=== PATIENT | female | born 1960 | race Caucasian/White ===

== ENCOUNTER → 2018-03-19 17:33 | Outpatient (CLI) | payer BC, SELFPAY | DX: R19.7 Diarrhea, unspecified (principal) | CPT/HCPCS: 87045; 87046 ==

== ENCOUNTER → 2018-04-20 07:20 | Outpatient (CLI) | payer BC, SELFPAY ==
[2018-04-20 09:06] LABS: Add Manual Diff / Slide Review NO; Basophils Percent Auto 0.2 % (0-2); Eosinophils Percent Auto 2.7 % (2-4); Hematocrit 41.4 % (36-46); Hemoglobin 14.2 g/dL (12.0-16.0); Lymphocytes Percent Auto 25.4 % (25-40); Mean Corpuscular HGB Conc 34.4 % (30-36); Mean Corpuscular Hemoglobin 32.6 PG (26-34); Mean Corpuscular Volume 94.9 fL (80-100); Monocytes Percent Auto 5.3 % (3-14); Neutrophils Absolute Auto 4200 /uL (3000-5900); Neutrophils Percent Auto 66.4 % (50-75); Platelet Count 179 X10^3/uL (150-400); Red Blood Cell Count 4.36 X10^6/uL (4.0-5.2); Red Cell Distribution Width 12.4 % (11.6-14.8); White Blood Cell Count 6.4 X10^3/uL (4.5-11.0)
[2018-04-20 09:56] LABS: Alanine Aminotransferase 29 IU/L (9-52); Albumin 4.2 g/dL (3.5-5.0); Albumin Globulin Ratio 1.4 (1.0-2.8); Alkaline Phosphatase 67 U/L (38-126); Aspartate Aminotransferase 15 IU/L (14-36); BUN Creatinine Ratio 16.3 (6-22); Bilirubin Total 0.5 mg/dL (0.2-1.3); Blood Urea Nitrogen 13 mg/dL (7-17); Calcium 9.3 mg/dL (8.4-10.2); Carbon Dioxide 27 mmol/L (22-32); Chloride 103 mmol/L (98-107); Cholesterol 169 mg/dL (140-199); Estimated Glomerular Filt Rate > 60.0 mL/min (>60); Globulin 2.9 g/dL (1.7-4.1); Glucose 99 mg/dL (70-100); HDL Cholesterol 39 mg/dL (40-60); HEMOLYSIS < 15 (0-50); LDL Cholesterol Calculated 95 mg/dL (<100); Potassium 4.2 mmol/L (3.4-5.1); Sodium 143 mmol/L (137-145); Total Protein 7.1 g/dL (6.3-8.2); Triglycerides 173 mg/dL (35-150)
[2018-04-20 10:05] LABS: Free T3, Triiodothyronine Free 3.71 pg/mL (2.77-5.27); Free T4, Direct Thyroxine 0.81 ng/dL (0.78-2.19)
[2018-04-20 10:18] LABS: Thyroid Stimulating Hormone 1.73 uIU/mL (0.47-4.68)
[2018-04-20 11:44] LABS: Vitamin D 25 Hydroxy (D3) 20.4 ng/mL (30.0-100.0)
[2018-04-21 14:16] LABS: Anti Thyroglobulin Antibody < 1 IU/mL (< 2)
== END ==
PROVIDERS: PCP Family Medicine; Visit Provider Family Medicine
DX: Z86.39 Personal history of other endocrine, nutritional and metabolic disease (principal); R53.83 Other fatigue
CPT/HCPCS: 36415; 80053; 80061; 82306; 84439; 84443; 84481; 85025; 86800

== ENCOUNTER → 2018-04-21 07:16 | Outpatient (CLI) | payer BC, SELFPAY ==
--- NOTE | 2018-04-21 07:17 | DI.US.S_ITS ---
PROCEDURE: US THYROID INDICATIONS: History of hypothyroidism TECHNIQUE: Real-time scanning was performed of the thyroid gland, with image documentation. COMPARISON: None. FINDINGS: Right: Thyroid lobe measures 4.1 x 1.2 x 1.7 cm, and is homogeneous in echotexture. Left: Thyroid lobe measures 5.9 x 1.8 x 1.6 cm, and is homogenous in echotexture. Isthmus: 2.7 mm thick. Nodule number: 1 Location: Left mid Size: 2.6 x 1.4 x 1.5 cm. Composition: Solid Echogenicity: Hypoechoic Shape: wider than tall. Margins: Smooth Echogenic foci: None Total points: 4 ACR TI-RADS category: Moderately suspicious Nodule number: 2 Location: Left inferior Size: 1 20 x 1.0 x 1.2 cm. Composition: Solid Echogenicity: Hypoechoic Shape: wider than tall. Margins: Smooth Echogenic foci: Punctate internal echogenic foci Total points: 7 ACR TI-RADS category: Highly suspicious Nodule number: 3 Location: Right inferior Size: 1.4 x 0.9 x 1.2 cm. Composition: Solid Echogenicity: Hypoechoic Shape: wider than tall. Margins: Smooth Echogenic foci: None Total points: 4 ACR TI-RADS category: Moderately suspicious IMPRESSION: Bilateral thyroid nodules as above. Recommend sonographic guided fine needle aspiration involving the left # 1 and # 2 nodules. ACR TI-RADS definitions and recommendations: TI-RADS 1 (benign): 0 points. FNA not needed. TI-RADS 2 (not suspicious): 2 points. FNA not needed. TI-RADS 3 (mildly suspicious): 3 points. * FNA if 2.5 cm or larger, follow up if 1.5 cm or larger (at 1, 3, and 5 years). TI-RADS 4 (moderately suspicious): 4-6 points. * FNA if 1.5 cm or larger, follow up if 1 cm or larger (at 1, 2, 3, and 5 years). TI-RADS 5 (highly suspicious): 7 points or more. * FNA if 1 cm or larger, fo Dictated by: Abad Christina RRA Interpreted: Bk Bhardwaj MD on 04/21/2018 at 9:48 Approved by: Bk Bhardwaj M.D. on 04/21/2018 at 10:59
== END ==
PROVIDERS: PCP Family Medicine; Visit Provider Family Medicine
DX: E04.2 Nontoxic multinodular goiter (principal); E03.9 Hypothyroidism, unspecified
CPT/HCPCS: 76536

== ENCOUNTER → 2018-06-04 07:42 | Outpatient (CLI) | payer BC, SELFPAY ==
[2018-06-04 09:11] LABS: Cortisol AM (Before 10AM) 1.04 ug/dL (4.46-22.7)
== END ==
PROVIDERS: PCP Family Medicine; Visit Provider Internal Medicine Endocrinology, Diabetes & Metabolism
DX: R53.82 Chronic fatigue, unspecified (principal)
CPT/HCPCS: 36415; 82533

== ENCOUNTER → 2018-09-01 11:56 | Outpatient (CLI) | payer BC, SELFPAY ==
--- NOTE | 2018-09-01 | DI.MG.S_ITS ---
BILATERAL DIGITAL SCREENING MAMMOGRAM 3D/2D WITH CAD: 09/01/2018 CLINICAL: Routine screening. Comparison is made to exams dated: 06/30/2017 mammogram and 04/17/2016 mammogram - [facility]. The tissue of both breasts is predominantly fatty. Current study was also evaluated with a Computer Aided Detection (CAD) system. No significant masses, calcifications, or other findings are seen in either breast. There has been no significant interval change. IMPRESSION: NEGATIVE There is no mammographic evidence of malignancy. A 1 year screening mammogram is recommended. NOTE: For mammograms, a report in lay terms will be sent to the patient. Approximately 15% of breast malignancies will not be visualized mammographically. In the management of a palpable breast mass, a negative mammogram must not discourage biopsy of a clinically suspicious lesion. Electronically Signed By: Annie pinto/leeann:09/01/2018 15:51:25 letter sent: Normal Exam ACR BI-RADS Category 1: Negative 3341F
== END ==
PROVIDERS: PCP Family Medicine; Visit Provider Family Medicine
DX: Z12.31 Encounter for screening mammogram for malignant neoplasm of breast (principal)
CPT/HCPCS: 77063; 77067

== ENCOUNTER → 2019-01-27 14:48 | Outpatient (CLI) | payer BC, SELFPAY ==
[2019-01-27 15:53] LABS: Influenza A and B by PCR Rapid Negative (Negative)
== END ==
PROVIDERS: PCP Family Medicine; Visit Provider Nurse Practitioner Family
DX: R50.9 Fever, unspecified (principal)
CPT/HCPCS: 87400

== ENCOUNTER → 2019-09-02 07:14 | Outpatient (CLI) | payer BC, SELFPAY ==
--- NOTE | 2019-09-02 | DI.MG.S_ITS ---
BILATERAL DIGITAL SCREENING MAMMOGRAM 3D/2D WITH CAD: 09/02/2019 CLINICAL: Routine screening. Comparison is made to exams dated: 09/01/2018 mammogram - [facility], 06/30/2017 mammogram, and 04/17/2016 mammogram - [facility]. The tissue of both breasts is predominantly fatty. Current study was also evaluated with a Computer Aided Detection (CAD) system. No significant masses, calcifications, or other findings are seen in either breast. There has been no significant interval change. IMPRESSION: NEGATIVE There is no mammographic evidence of malignancy. A 1 year screening mammogram is recommended. This exam was interpreted at Station ID: [id number]. NOTE: For mammograms, a report in lay terms will be sent to the patient. Approximately 15% of breast malignancies will not be visualized mammographically. In the management of a palpable breast mass, a negative mammogram must not discourage biopsy of a clinically suspicious lesion. Electronically Signed By: Samra shaw/leeann:09/02/2019 12:59:57 letter sent: Normal Exam ACR BI-RADS Category 1: Negative 3341F
[2019-09-02 08:02] LABS: Appearance Urine UA CLEAR; Bilirubin Urine UA NEGATIVE (NEGATIVE); Color Urine UA YELLOW; Glucose Urine UA NEGATIVE (Negative); Ketones Urine UA NEGATIVE (NEGATIVE); Leukocyte Esterase Urine UA TRACE (NEGATIVE); Nitrite Urine UA NEGATIVE (Negative); Occult Blood Urine UA TRACE-LYSED (Negative); Protein Urine UA NEGATIVE (Negative); Specific Gravity Urine UA 1.015 (1.000-1.035); Urobilinogen Urine UA 0.2 E.U./dL (0.2)
[2019-09-02 08:16] LABS: Bacteria Urine Moderate (10-30); Culture Indicated Urine Cult Not Indicated; RBC Urine 0-1/HPF (0-5/HPF); Squamous Epithelial Cell Urine 5-10 /HPF (0-5/HPF); WBC Urine 1-5/HPF (0-5/HPF)
[2019-09-02 08:18] LABS: Hematocrit 40.2 % (36-46); Hemoglobin 13.8 g/dL (12.0-16.0); Mean Corpuscular HGB Conc 34.4 % (30-36); Mean Corpuscular Hemoglobin 32.7 PG (26-34); Mean Corpuscular Volume 95.2 fL (80-100); Platelet Count 181 X10^3/uL (150-400); Red Blood Cell Count 4.23 X10^6/uL (4.0-5.2); Red Cell Distribution Width 12.6 % (11.6-14.8); White Blood Cell Count 7.1 X10^3/uL (4.5-11.0)
[2019-09-02 08:28] LABS: Alanine Aminotransferase 14 IU/L (<35); Albumin 3.9 g/dL (3.5-5.0); Albumin Globulin Ratio 1.5 (1.0-2.8); Alkaline Phosphatase 74 U/L (38-126); Aspartate Aminotransferase 16 IU/L (14-36); BUN Creatinine Ratio 17.5 (6-22); Bilirubin Total 0.4 mg/dL (0.2-1.3); Blood Urea Nitrogen 14 mg/dL (7-17); Calcium 9.2 mg/dL (8.4-10.2); Carbon Dioxide 28 mmol/L (22-32); Chloride 104 mmol/L (98-107); Cholesterol 162 mg/dL (140-199); Estimated Glomerular Filt Rate > 60.0 mL/min (>60); Globulin 2.6 g/dL (1.7-4.1); Glucose 109 mg/dL (80-110); HDL Cholesterol 36 mg/dL (40-60); HEMOLYSIS < 15 (0-50); LDL Cholesterol Calculated 99 mg/dL (<100); Potassium 4.4 mmol/L (3.4-5.1); Sodium 138 mmol/L (137-145); Total Protein 6.5 g/dL (6.3-8.2); Triglycerides 137 mg/dL (35-150)
[2019-09-02 08:57] LABS: Neutrophils Absolute Manual 5183 /uL (3000-5900); Thyroid Stimulating Hormone 1.78 uIU/mL (0.47-4.68); Total Cells Counted 100
[2019-09-02 08:58] LABS: Microcytosis 1+; Polychromasia 1+
[2019-09-02 15:22] LABS: Vitamin D 25 Hydroxy (D3) 47.3 ng/mL (30.0-100.0)
== END ==
PROVIDERS: PCP Family Medicine; Visit Provider Family Medicine
DX: Z00.00 Encounter for general adult medical examination without abnormal findings (principal); Z12.31 Encounter for screening mammogram for malignant neoplasm of breast; R53.83 Other fatigue; Z51.81 Encounter for therapeutic drug level monitoring; Z86.39 Personal history of other endocrine, nutritional and metabolic disease
CPT/HCPCS: 36415; 77063; 77067; 80053; 80061; 81003; 81015; 82306; 84443; 85025

== ENCOUNTER → 2021-01-25 15:52 | Outpatient (CLI) | payer OTHER, SELFPAY ==
[2021-01-25] MEDS: COVID-19 VACC #1, MRNA(MOD) 100 MCG/0.5 ML VIAL IM (16:00)
== END ==
PROVIDERS: PCP Family Medicine; Visit Provider Internal Medicine
DX: Z23 Encounter for immunization (principal)
CPT/HCPCS: 0011A; 91301

== ENCOUNTER → 2021-02-22 15:53 | Outpatient (CLI) | payer OTHER, SELFPAY ==
[2021-02-22] MEDS: COVID-19 VACC #2, MRNA(MOD) 100 MCG/0.5 ML VIAL IM (16:03)
== END ==
PROVIDERS: PCP Family Medicine; Visit Provider Internal Medicine
DX: Z23 Encounter for immunization (principal)
CPT/HCPCS: 0012A; 91301

== ENCOUNTER 2022-12-05 11:50 | Inpatient (IN) | payer OTHER, SELFPAY ==
[2022-12-05] VITALS (68 sets, daily range): BP systolic 117–228; BP diastolic 57–136; PULSE 69–100; RESP 13–29; TEMP 37.1–37.7; O2SAT 88–100; BMI 41.2
--- NOTE | 2022-12-05 12:07 | DI.CT.S_ITS ---
PROCEDURE: CT STROKE INDICATIONS: Positive BE-FAST, Stroke symptoms TECHNIQUE: Noncontrast 4.5 mm thick angled axial sections acquired from the foramen magnum to the vertex, with coronal reformats. For radiation dose reduction, the following was used: automated exposure control, adjustment of mA and/or kV according to patient size. COMPARISON: None. FINDINGS: Image quality: Excellent. CSF spaces: Basal cisterns are patent. No extra-axial fluid collections. The ventricles are symmetric in size and shape. Brain: No intracranial bleeds or masses. There is cerebral volume loss for age, with resultant ventricular and sulcal prominence. There are periventricular and deep white matter chronic small vessel ischemic changes. There is intracranial internal carotid artery atherosclerosis. Skull and face: Calvarium and visualized facial bones appear intact, without suspicious lesions. Sinuses: Visualized sinuses and mastoids are clear. IMPRESSION: 1. No acute intracranial abnormalities. 2. Cerebral volume loss and chronic microvascular ischemic changes. The result was discussed with Dr. Soto. This study fulfills neurological imaging criteria for inclusion or exclusion of acute stroke therapies based on available published neurological guidelines. Dictated by: Reji Pan M.D. on 12/05/2022 at 12:25 Approved by: Reji Pan M.D. on 12/05/2022 at 12:27
--- NOTE | 2022-12-05 12:07 | DI.RAD.S_ITS ---
PROCEDURE: XR CHEST 1V INDICATIONS: Possible stroke TECHNIQUE: One view of the chest was acquired. COMPARISON: None. FINDINGS: Surgical changes and devices: None. Lungs and pleura: Lungs are clear. No pleural effusions or pneumothorax. Mediastinum: Mediastinal contours appear normal. Heart size is normal. Bones and chest wall: No suspicious bony lesions. Overlying soft tissues appear unremarkable. IMPRESSION: No acute cardiopulmonary abnormality. Dictated by: Yuriy Arana M.D. on 12/05/2022 at 12:32 Approved by: Yuriy Arana M.D. on 12/05/2022 at 12:32
[2022-12-05 12:30] LABS: UR Morphine/Opiate cutoff 300 Negative (Negative); Ur Creatinine Normal (Normal); Ur Specific Gravity Normal (Normal); Urine Amphetamines Negative (Negative); Urine Cocaine Negative (Negative); Urine Tetrahydrocannabinol Positive (Negative); Urine pH Normal (Normal)
[2022-12-05 12:31] LABS: Urine Barbiturates Negative (Negative); Urine Benzodiazepines Negative (Negative); Urine MDMA Negative (Negative); Urine Methadone Negative (Negative); Urine Methamphetamines Negative (Negative); Urine Oxycodone Negative (Negative); Urine Phencyclidine Negative (Negative); Urine Tricyclic Antidepressant Negative (Negative)
[2022-12-05 13:29] LABS: Add Manual Diff / Slide Review NO; Basophils Absolute Auto 100 /uL (0-100); Basophils Percent Auto 0.5 % (0-2); Eosinophils Absolute Auto 0 /uL (0-450); Eosinophils Percent Auto 0.1 % (2-4); Hematocrit 42.4 % (36-46); Hemoglobin 14.5 g/dL (12.0-16.0); Lymphocytes Absolute Auto 700 /uL (1100-4500); Lymphocytes Percent Auto 5.9 % (25-40); Mean Corpuscular HGB Conc 34.3 % (30-36); Mean Corpuscular Volume 96.4 fL (80-100); Monocytes Absolute Auto 400 /uL (0-900); Monocytes Percent Auto 3.5 % (3-14); Neutrophils Absolute Auto 11500 /uL (1500-7000); Platelet Count 183 X10^3/uL (150-400); Red Blood Cell Count 4.39 X10^6/uL (4.0-5.2); Red Cell Distribution Width 12.6 % (11.6-14.8); White Blood Cell Count 12.7 X10^3/uL (4.5-11.0)
[2022-12-05] MEDS: ONDANSETRON 4 MG ODT SL (13:33)
[2022-12-05 13:39] LABS: Alanine Aminotransferase 25 IU/L (<35); Albumin 4.6 g/dL (3.5-5.0); Albumin Globulin Ratio 1.3 (1.0-2.8); Alkaline Phosphatase 75 U/L (38-126); Aspartate Aminotransferase 30 IU/L (14-36); BUN Creatinine Ratio 12.2 (6-22); Bilirubin Total 0.8 mg/dL (0.2-1.3); Blood Urea Nitrogen 10 mg/dL (7-17); Calcium 9.4 mg/dL (8.4-10.2); Carbon Dioxide 25 mmol/L (22-32); Chloride 99 mmol/L (98-107); Creatine Kinase 57 U/L (30-135); Estimated Glomerular Filt Rate > 60 mL/min (>60); Globulin 3.5 g/dL (1.7-4.1); Glucose 118 mg/dL (80-110); Magnesium 1.9 mg/dL (1.6-2.3); Potassium 3.9 mmol/L (3.4-5.1); Sodium 138 mmol/L (137-145); Total Protein 8.1 g/dL (6.3-8.2)
[2022-12-05 13:40] LABS: HEMOLYSIS 64 (0-50)
[2022-12-05 13:45] LABS: Prothrombin Time 11.9 SECONDS (10.1-12.7)
[2022-12-05 13:48] LABS: PTT Partial Thromboplastin Tim 18 SECONDS (26-36)
[2022-12-05 13:51] LABS: Troponin I < 0.012 ng/mL (0.01-0.034)
[2022-12-05 14:18] LABS: Influenza A - CEPHEID Flu A NEGATIVE (NEGATIVE); Influenza B - CEPHEID Flu B NEGATIVE (NEGATIVE); Respiratory Syncytial Virus Negative (Negative)
[2022-12-05 14:20] LABS: COVID-19 CEPHEID 4-PLEX PCR Negative (Negative)
--- NOTE | 2022-12-05 14:31 | DI.CT.S_ITS ---
PROCEDURE: CT ANGIO HEAD AND NECK INDICATIONS: gill, htn, memory problems TECHNIQUE: Pre-contrast 4.5 mm thick sections acquired from the foramen magnum to the vertex. After the administration of intravenous contrast, 1 mm thick sections acquired from the aortic arch through the [place]. Post-contrast 4.5 mm thick sections then re-acquired from the foramen magnum to the vertex. 3-dimensional wjiqvhl-iyzfhufmw-idjvmzlmqe (MIP) and/or volume rendering reformats were acquired of the central intracranial vasculature and neck separately. For radiation dose reduction, the following was used: automated exposure control, adjustment of mA and/or kV according to patient size. COMPARISON: [facility], , FINE NEEDLE ASPIRATION THYROID, 06/15/2018, 11:23. FINDINGS: Image quality: Excellent. BRAIN: CSF spaces: Ventricles are normal in size and shape. Basal cisterns are patent. No extra-axial fluid collections. Brain: No midline shift. No intracranial bleeds or masses. Mcdonald-white matter interface appears intact. Skull and face: Calvarium and facial bones appear intact, without suspicious lesions. Orbits appear normal. Sinuses: Sinuses and mastoids are clear. HEAD CT ANGIOGRAPHY: Anterior circulation: Intracranial internal carotid arteries are normal in size and flow. The flow within the paired anterior cerebral arteries is normal and symmetric. The flow within the middle cerebral arteries is normal and symmetric. The anterior communicating artery is seen. No aneurysms are seen. Posterior circulation: Visualized portions of the vertebral arteries demonstrate normal caliber, and join to form a normal appearing basilar artery. Flow within the posterior cerebral arteries is normal and symmetric. No aneurysms are seen. NECK CT ANGIOGRAPHY: Carotid system: The great vessels demonstrate a conventional anatomy as they arise from the aortic arch. The origins of the common carotid arteries appear patent. The common carotid arteries demonstrate normal caliber and courses. The bifurcation regions are both widely patent. The internal carotid arteries demonstrate normal calibers and courses. Posterior circulation: The origins of the vertebral arteries both appear widely patent. The more superior extracranial portions of both vertebral arteries also demonstrate normal courses and calibers. They join to form a normal appearing basilar artery. Soft tissues: Visualized neck soft tissues demonstrate no suspicious abnormalities except at the thyroid gland where bilateral thyroid nodules appear present. There is a sub cm hypodense nodule within the middle 3rd right thyroid lobe and a significantly larger nodule enlarging the lower 3rd of the left thyroid lobe, possibly measuring up to 2 cm in diameter.. Bones: No suspicious bony lesions. Visualized cervical spine appears normally aligned. IMPRESSION: 1. Two separate thyroid nodules are present, large on the left and small on the right. Dedicated elective follow-up thyroid ultrasound may be warranted. It is noted that prior thyroid ultrasound scanning has been performed in 2018 including biopsy procedures. Accurate comparison between the current CT scanning and the prior ultrasound scanning is not possible. 2. Source of current symptoms is not found. No mass, stroke or intracranial hemorrhage is found. No significant cervical or intracranial arterial stenosis is identified. Any quantitative measurements of stenosis were performed using NASCET criteria. Dictated by: Abdirahman Zamora M.D. on 12/05/2022 at 15:22 Approved by: Abdirahman Zamora M.D. on 12/05/2022 at 15:27
--- NOTE | 2022-12-05 14:34 | ED_ITS ---
HPI - Neuro Symptoms/Deficit General Chief Complaint: Neuro Symptoms/Deficit Stated Complaint: throwing up as of last night, memory is lost Time Seen by Provider: 12/05/22 14:31 Source: patient Mode of arrival: Ambulatory Limitations: no limitations History of Present Illness HPI Narrative: This is a 62-year-old female with history of allergies, patient states she is not sure why she is here but she can tell me that she had some nausea vomiting and diarrhea last night. Her who is at bedside states last night she is complaining of some upper back discomfort so having nausea and vomiting after dinner as well as diarrhea multiple episodes throughout the night was up most of the night but stopped vomiting this morning but still nauseated feeling unwell. He states no fevers, no complaints of headaches, no complaints of vision change, no speech, no facial droop no weakness normal gait but noted this morning she took a nap for about an hour and a half and when she woke up was confused particularly in terms of short-term memory although there are some things from a couple weeks ago that she forgets but her long-term memory seems intact. Patient's states she has not had any episodes like this before. Patient herself denies headache, no fevers or chills. No chest pain or shortness of breath, no numbness, tingling or weakness. No abdominal, no back or flank pain. She still has some nausea she does note she was sick last night she notes that she would diarrhea and had to change her underwear. No reported black or bloody stools for patient or from her . No dysuria urgency or frequency. Both her and her state nothing similar in the past. She can tell me she does take medications for allergies [id number] and vitamins. She told me she is had a tonsillectomy, no known drug allergies. No tobacco 1 alcoholic drink most days, she uses THC but no other illicit drugs. No active PCP. She notes her mom had a brain tumor in the 1980s that was removed did not cause any additional issues. There is reported history of celiac disease in her family but she is never been tested. Her corroborates this history. Patient is able to give a pretty good history but when I ask her specific questions about last night or this morning she does struggle. On Anticoagulants: No Related Data Home Medications Medication Instructions Recorded Confirmed cetirizine 10 mg capsule (Zyrtec) 10 mg PO DAILY 03/19/18 10/11/19 triamcinolone acetonide 55 mcg 1 spray intranasal DAILY 03/19/18 10/11/19 nasal spray aerosol (Nasacort) Previous Rx's Medication Instructions Recorded acetaminophen 325 mg capsule 650 mg PO ONCE #2 caps 01/27/19 adjuvant AS01B (PF)vial 1 of 2 0.5 ml IM ONCE #0.5 mL 05/13/19 (Shingrix Adjuvant Component (PF) intramuscular suspension) cyclobenzaprine 10 mg tablet 10 mg PO ONCE PRN muscle spasm #30 08/16/19 tabs Allergies Allergy/AdvReac Type Severity Reaction Status Date / Time house dust Allergy Mild Verified 12/05/22 14:01 perfume Allergy Mild Verified 12/05/22 14:01 tree and shrub pollen Allergy Mild Post nasal Verified 12/05/22 14:01 drip Review of Systems Review of Systems ROS Unobtainable: All systems reviewed & are unremarkable except as noted in HPI and below Hematologic/Lymphatic On Anticoagulants: No Patient History Medical History Chickenpox (1961) Chronic back pain (1986) Herpes (1985) Hypothyroidism (1971) Measles (1960) Mumps (1962) Pneumonia (2016) Surgical History Hx of dilation and curettage (1981) Hx of tonsillectomy (~1962) Family History Father Atrial fibrillation, chronic Macular degeneration Hypertension Hyperlipidemia Mother Cancer Brain tumor Grandfather No problems noted. Grandmother Cancer Grandfather No problems noted. Grandmother No problems noted. Brother Cancer Social History household members: spouse Smoking Status: Former smoker Tobacco: How many years used: 10 alcohol intake: current substance use type: does not use Smoking Status: Former smoker alcohol intake frequency: 0-2 drinks per day Substance Use Type: marijuana Exam Narrative Exam Narrative: GEN: well nourished, well appearing female, alert and oriented x 3, but has difficulty with short-term questions, patient appears to be in mild distress. HEENT: Atraumatic, pupils are equal round reactive to light, extraocular movements are intact, nares are clear, TMs are clear with no fluid, there is no conjunctival pallor. Throat is clear without any exudates, erythema, tonsillar enlargement or uvular deviation, no facial droop. HEART: Regular rate and rhythm without murmur, clicks, rubs. No carotid bruits, pulses are equal in upper and lower extremities LUNGS:Lungs clear to auscultation, no wheezes, rales, crackles, chest moves symmetrically ABD:bowel sounds normal, soft, non-tender, no guarding, rebound, rigidity, no masses noted, no hepatosplenomegaly :No CVA tenderness MSCL: Non-tender, no muscle atrophy, muscles strength 5/5 upper and lower extremities, full range of motion, normal gait NEURO:CN 2-12 intact, sensation normal, finger nose finger test normal, heel henley test normal, romberg normal SKIN: No rash, erythema or other skin changes. Initial Vital Signs Initial Vital Signs: Vital Signs Temperature 98.8 F 12/05/22 11:55 Pulse Rate 100 H 12/05/22 11:55 Respiratory Rate 16 12/05/22 11:55 Blood Pressure 159/81 H 12/05/22 11:55 Pulse Oximetry 97 12/05/22 11:55 Oxygen Delivery Method 12/05/22 11:55 Scores NIH Stroke Scale Level of Conciousness: Alert, keenly responsive Ask month/age: Answers both questions correctly. Open/close eyes, close hand: Performs both tasks correctly Best gaze horizontal: Normal Visual hernandez: No visual loss Facial palsy: Normal symetrical movement Left arm drift: No drift for full 10 sec Right arm drift: No drift for full 10 sec Left leg drift: No drift for full 5 sec Right leg drift: No drift for full 5 sec Limb ataxia: Absent Sensory on face/arms/legs: Normal, no sensory loss Best language: No aphasia, normal Dysarthria: Normal Extinction or inattention: No abnormality Total NIH Stroke scale score: 0 Course Orders Ordered: ED Orders 12/05/22 12:05 Urine Drug Screen, Rapid Stat 12/05/22 12:07 CT Stroke Stat XR chest 1V Stat 12/05/22 13:11 Complete Blood Count AUTO DIFF Stat Comprehensive Metabolic Panel Stat Magnesium Stat Partial Thromboplastin Time Stat Prothrombin Time INR Stat TSH [Thyroid Stimulating Hormone] Stat Troponin & CK Cardiac Panel Stat 12/05/22 13:25 ETOH [Ethanol (ETOH)] Stat 12/05/22 13:33 Covid-19 + FLU A/B + RSV - PCR Stat 12/05/22 13:39 EKG-12 Lead Stat 12/05/22 14:31 CT angio head and neck Stat 12/05/22 15:33 Urinalysis and Microscopic Stat Urine Culture Stat 12/05/22 15:34 Urine Drug Screen, Rapid Stat 12/05/22 16:25 MR head/brain wo con Stat 12/05/22 18:06 Consult to Tele-contract graphic designer Routine Acetaminophen (Acetaminophen 325 Mg Tablet) 650 mg PO Q6H PRN PRN Reason: Fever/Mild Pain (1-3) Aspirin (Aspirin Ec 81 Mg Tablet) 81 mg PO DAILY MC Atorvastatin Calcium (Atorvastatin 20 Mg Tablet) 40 mg PO BEDTIME MC Enoxaparin Sodium (Enoxaparin 40 Mg/0.4 Ml Syringe) 40 mg SUBCUT DAILY MC Nicardipine HCl 25 mg/ Sodium (Chloride) 250 mls @ 50 mls/hr IV TITRATE MC; Protocol Last Titration: 12/05/22 18:05 Dose: 0 mg/hr, 0 mls/hr Documented By: Admin: 12/05/22 17:22 Dose: 5 mg/hr, 50 mls/hr Documented By: TOY Ondansetron HCl (Ondansetron 4 Mg/2 Ml Inj) 4 mg IV Q4HR PRN PRN Reason: Nausea And Vomiting Discontinued Medications Influenza Virus Vaccine (Influenza Vaccine Qiv 0.5 Ml Syringe) 0.5 ml IM .ONCE ONE Stop: 12/05/22 18:22 Metoprolol Tartrate (Metoprolol Tartrate 5 Mg/5 Ml Inj) 5 mg IV NOW ONE Stop: 12/05/22 15:29 Last Admin: 12/05/22 15:35 Dose: 5 mg Documented By: RL Metoprolol Tartrate (Metoprolol Tartrate 5 Mg/5 Ml Inj) 5 mg IV NOW ONE Stop: 12/05/22 16:23 Last Admin: 12/05/22 16:51 Dose: Not Given Documented By: MARTHA Ondansetron HCl (Ondansetron 4 Mg/2 Ml Inj) 4 mg IV NOW PRN PRN Reason: Nausea And Vomiting Last Admin: 12/05/22 14:55 Dose: 4 mg Documented By: RL Ondansetron HCl (Ondansetron 4 Mg Odt) 4 mg SL NOW ONE Stop: 12/05/22 13:31 Last Admin: 12/05/22 13:33 Dose: 4 mg Documented By: NR Consultations Consultation #1: Dr. Arenas, neurology: Recommends hypertensive control with 25% reduction no more initially, using short-acting blood pressure control admit observation if not improving or clearing MR. She does not wrap command any antiplatelet therapy currently as her suspicion for embolic event is low. Vital Signs Vital signs: Vital Signs - 8 hr 12/05/22 11:55 12/05/22 13:14 12/05/22 13:14 Temperature 98.8 F Pulse Rate 100 H 91 H Respiratory Rate 16 Blood Pressure 159/81 H 218/100 H Pulse Oximetry 97 98 Oxygen Delivery Method Room Air 12/05/22 13:15 12/05/22 13:26 12/05/22 13:26 Temperature Pulse Rate 90 90 Respiratory Rate 14 18 Blood Pressure 224/98 H Pulse Oximetry 99 98 Oxygen Delivery Method Room Air 12/05/22 13:30 12/05/22 13:31 12/05/22 13:31 Temperature Pulse Rate 91 H 91 H Respiratory Rate 19 20 Blood Pressure 217/106 H Pulse Oximetry 99 99 Oxygen Delivery Method 12/05/22 13:45 12/05/22 13:46 12/05/22 13:46 Temperature Pulse Rate 87 88 Respiratory Rate 16 20 Blood Pressure 204/118 H Pulse Oximetry 99 99 Oxygen Delivery Method 12/05/22 14:00 12/05/22 14:00 12/05/22 14:15 Temperature Pulse Rate 84 Respiratory Rate 20 Blood Pressure 206/97 H 201/96 H Pulse Oximetry 94 Oxygen Delivery Method Room Air 12/05/22 14:15 12/05/22 14:30 12/05/22 14:31 Temperature Pulse Rate 83 97 H 98 H Respiratory Rate 21 15 14 Blood Pressure Pulse Oximetry 93 98 98 Oxygen Delivery Method 12/05/22 14:31 12/05/22 14:45 12/05/22 14:45 Temperature Pulse Rate 98 H Respiratory Rate 16 Blood Pressure 223/106 H 209/106 H Pulse Oximetry 98 Oxygen Delivery Method 12/05/22 15:10 12/05/22 15:11 12/05/22 15:11 Temperature Pulse Rate 95 H 94 H Respiratory Rate 29 H 20 Blood Pressure 193/91 H Pulse Oximetry 98 98 Oxygen Delivery Method 12/05/22 15:15 12/05/22 15:15 12/05/22 15:30 Temperature Pulse Rate 92 H Respiratory Rate 16 Blood Pressure 209/110 H 207/113 H Pulse Oximetry 98 Oxygen Delivery Method 12/05/22 15:30 12/05/22 15:40 12/05/22 15:40 Temperature Pulse Rate 84 85 Respiratory Rate 22 17 Blood Pressure 199/136 H Pulse Oximetry 93 95 Oxygen Delivery Method 12/05/22 15:45 12/05/22 15:45 12/05/22 15:50 Temperature Pulse Rate 69 Respiratory Rate 13 Blood Pressure 195/132 H 205/115 H Pulse Oximetry 93 Oxygen Delivery Method 12/05/22 15:50 12/05/22 15:55 12/05/22 15:55 Temperature Pulse Rate 72 72 Respiratory Rate 16 15 Blood Pressure 205/113 H Pulse Oximetry 93 93 Oxygen Delivery Method 12/05/22 16:00 12/05/22 16:01 12/05/22 16:01 Temperature Pulse Rate 73 71 Respiratory Rate 16 16 Blood Pressure 220/118 H Pulse Oximetry 92 92 Oxygen Delivery Method 12/05/22 16:05 12/05/22 16:05 12/05/22 16:10 Temperature Pulse Rate 73 76 Respiratory Rate 14 18 Blood Pressure 228/115 H Pulse Oximetry 93 93 Oxygen Delivery Method 12/05/22 16:10 12/05/22 16:15 12/05/22 16:15 Temperature Pulse Rate 73 Respiratory Rate 18 Blood Pressure 211/111 H 213/106 H Pulse Oximetry 93 Oxygen Delivery Method 12/05/22 16:20 12/05/22 16:20 12/05/22 16:25 Temperature Pulse Rate 75 78 Respiratory Rate 16 22 Blood Pressure 202/96 H Pulse Oximetry 94 95 Oxygen Delivery Method 12/05/22 16:25 12/05/22 16:30 12/05/22 16:30 Temperature Pulse Rate 74 Respiratory Rate 25 H Blood Pressure 213/100 H 218/103 H Pulse Oximetry 94 Oxygen Delivery Method 12/05/22 16:35 12/05/22 16:35 12/05/22 16:40 Temperature Pulse Rate 74 74 Respiratory Rate 23 15 Blood Pressure 222/126 H Pulse Oximetry 92 93 Oxygen Delivery Method 12/05/22 16:40 12/05/22 16:45 12/05/22 16:45 Temperature Pulse Rate 72 Respiratory Rate 14 Blood Pressure 215/102 H 206/100 H Pulse Oximetry 94 Oxygen Delivery Method 12/05/22 17:00 12/05/22 17:00 Temperature Pulse Rate 74 Respiratory Rate 17 Blood Pressure 203/103 H Pulse Oximetry 93 Oxygen Delivery Method MDM - Neuro Symptoms/Deficit Lab Data 12/05/22 13:11 12/05/22 13:11 Labs: Lab Results 12/05/22 12/05/22 12/05/22 Range/Units 12:05 13:11 13:11 WBC 12.7 H (4.5-11.0) X10^3/uL RBC 4.39 (4.0-5.2) X10^6/uL Hgb 14.5 (12.0-16.0) g/dL Hct 42.4 (36-46) % MCV 96.4 (80-100) fL MCH 33.0 (26-34) PG MCHC 34.3 (30-36) % RDW 12.6 (11.6-14.8) % Plt Count 183 (150-400) X10^3/uL Neut % (Auto) 90.0 H (50-75) % Lymph % (Auto) 5.9 L (25-40) % [place] % (Auto) 3.5 (3-14) % Eos % (Auto) 0.1 L (2-4) % Baso % (Auto) 0.5 (0-2) % Neut # (Auto) 76724 H (5251-3277) /uL Lymph # (Auto) 700 L (9837-7741) /uL [place] # (Auto) 400 (0-900) /uL Eos # (Auto) 0 (0-450) /uL Baso # (Auto) 100 (0-100) /uL PT 11.9 (10.1-12.7) SECONDS INR 1.0 (0.9-1.3) APTT 18 L (26-36) SECONDS Sodium (137-145) mmol/L Potassium (3.4-5.1) mmol/L Chloride (98-107) mmol/L Carbon Dioxide (22-32) mmol/L BUN (7-17) mg/dL Creatinine (0.52-1.04) mg/dL Estimated GFR (>60) mL/min BUN/Creatinine Ratio (6-22) Glucose (80-110) mg/dL Calcium (8.4-10.2) mg/dL Magnesium (1.6-2.3) mg/dL Total Bilirubin (0.2-1.3) mg/dL AST (14-36) IU/L ALT (<35) IU/L Alkaline Phosphatase (38-126) U/L Total Creatine Kinase (30-135) U/L CK-MB (CK-2) CK-MB (CK-2) Rel Index Troponin I (0.01-0.034) ng/mL Total Protein (6.3-8.2) g/dL Albumin (3.5-5.0) g/dL Globulin (1.7-4.1) g/dL Albumin/Globulin Ratio (1.0-2.8) TSH (0.47-4.68) uIU/mL Urine Color Urine Appearance Urine pH (4.5-8.0) Ur Specific Nitro (1.000-1.035) Urine Protein (Negative) Urine Glucose (UA) (Negative) g/dL Urine Ketones (NEGATIVE) Urine Occult Blood (Negative) Urine Nitrate (Negative) Urine Bilirubin (NEGATIVE) Urine Urobilinogen (0.2) E.U./dL Ur Leukocyte Esterase (NEGATIVE) Urine RBC (0-5/HPF) Urine WBC (0-5/HPF) Ur Squamous Epith Cells (0-5/HPF) Ur Renal Epithelial Cell (0-1/HPF) Amorphous Sediment Urine Bacteria (None) Ur Culture Indicated? U Opiates 300ng/mL cut Negative (Negative) Ur Oxycodone Screen Negative (Negative) Urine Methadone Screen Negative (Negative) Ur Barbiturates Screen Negative (Negative) U Tricyclic Antidepress Negative (Negative) Ur Phencyclidine Scrn Negative (Negative) Ur Amphetamines Screen Negative (Negative) U Methamphetamines Scrn Negative (Negative) Ur MDMA Scrn (Ecstasy) Negative (Negative) U Benzodiazepines Scrn Negative (Negative) Urine Cocaine Screen Negative (Negative) U Marijuana (THC) Screen Positive H (Negative) Ethyl Alcohol ( - 10) mg/dL SARS-CoV-2 (PCR) (Negative) Influenza A (RT-PCR) (NEGATIVE) Influenza B (RT-PCR) (NEGATIVE) RSV (PCR) (Negative) 12/05/22 12/05/22 12/05/22 Range/Units 13:11 13:11 13:25 WBC (4.5-11.0) X10^3/uL RBC (4.0-5.2) X10^6/uL Hgb (12.0-16.0) g/dL Hct (36-46) % MCV (80-100) fL MCH (26-34) PG MCHC (30-36) % RDW (11.6-14.8) % Plt Count (150-400) X10^3/uL Neut % (Auto) (50-75) % Lymph % (Auto) (25-40) % [place] % (Auto) (3-14) % Eos % (Auto) (2-4) % Baso % (Auto) (0-2) % Neut # (Auto) (4937-2786) /uL Lymph # (Auto) (5569-5543) /uL [place] # (Auto) (0-900) /uL Eos # (Auto) (0-450) /uL Baso # (Auto) (0-100) /uL PT (10.1-12.7) SECONDS INR (0.9-1.3) APTT (26-36) SECONDS Sodium 138 (137-145) mmol/L Potassium 3.9 (3.4-5.1) mmol/L Chloride 99 (98-107) mmol/L Carbon Dioxide 25 (22-32) mmol/L BUN 10 (7-17) mg/dL Creatinine 0.82 (0.52-1.04) mg/dL Estimated GFR > 60 (>60) mL/min BUN/Creatinine Ratio 12.2 (6-22) Glucose 118 H (80-110) mg/dL Calcium 9.4 (8.4-10.2) mg/dL Magnesium 1.9 (1.6-2.3) mg/dL Total Bilirubin 0.8 (0.2-1.3) mg/dL AST 30 (14-36) IU/L ALT 25 (<35) IU/L Alkaline Phosphatase 75 (38-126) U/L Total Creatine Kinase 57 (30-135) U/L CK-MB (CK-2) TNP CK-MB (CK-2) Rel Index TNP Troponin I < 0.012 (0.01-0.034) ng/mL Total Protein 8.1 (6.3-8.2) g/dL Albumin 4.6 (3.5-5.0) g/dL Globulin 3.5 (1.7-4.1) g/dL Albumin/Globulin Ratio 1.3 (1.0-2.8) TSH 1.12 (0.47-4.68) uIU/mL Urine Color Urine Appearance Urine pH (4.5-8.0) Ur Specific Nitro (1.000-1.035) Urine Protein (Negative) Urine Glucose (UA) (Negative) g/dL Urine Ketones (NEGATIVE) Urine Occult Blood (Negative) Urine Nitrate (Negative) Urine Bilirubin (NEGATIVE) Urine Urobilinogen (0.2) E.U./dL Ur Leukocyte Esterase (NEGATIVE) Urine RBC (0-5/HPF) Urine WBC (0-5/HPF) Ur Squamous Epith Cells (0-5/HPF) Ur Renal Epithelial Cell (0-1/HPF) Amorphous Sediment Urine Bacteria (None) Ur Culture Indicated? U Opiates 300ng/mL cut (Negative) Ur Oxycodone Screen (Negative) Urine Methadone Screen (Negative) Ur Barbiturates Screen (Negative) U Tricyclic Antidepress (Negative) Ur Phencyclidine Scrn (Negative) Ur Amphetamines Screen (Negative) U Methamphetamines Scrn (Negative) Ur MDMA Scrn (Ecstasy) (Negative) U Benzodiazepines Scrn (Negative) Urine Cocaine Screen (Negative) U Marijuana (THC) Screen (Negative) Ethyl Alcohol < 10 ( - 10) mg/dL SARS-CoV-2 (PCR) (Negative) Influenza A (RT-PCR) (NEGATIVE) Influenza B (RT-PCR) (NEGATIVE) RSV (PCR) (Negative) 12/05/22 12/05/22 12/05/22 Range/Units 13:33 15:33 15:34 WBC (4.5-11.0) X10^3/uL RBC (4.0-5.2) X10^6/uL Hgb (12.0-16.0) g/dL Hct (36-46) % MCV (80-100) fL MCH (26-34) PG MCHC (30-36) % RDW (11.6-14.8) % Plt Count (150-400) X10^3/uL Neut % (Auto) (50-75) % Lymph % (Auto) (25-40) % [place] % (Auto) (3-14) % Eos % (Auto) (2-4) % Baso % (Auto) (0-2) % Neut # (Auto) (4654-8566) /uL Lymph # (Auto) (2449-1780) /uL [place] # (Auto) (0-900) /uL Eos # (Auto) (0-450) /uL Baso # (Auto) (0-100) /uL PT (10.1-12.7) SECONDS INR (0.9-1.3) APTT (26-36) SECONDS Sodium (137-145) mmol/L Potassium (3.4-5.1) mmol/L Chloride (98-107) mmol/L Carbon Dioxide (22-32) mmol/L BUN (7-17) mg/dL Creatinine (0.52-1.04) mg/dL Estimated GFR (>60) mL/min BUN/Creatinine Ratio (6-22) Glucose (80-110) mg/dL Calcium (8.4-10.2) mg/dL Magnesium (1.6-2.3) mg/dL Total Bilirubin (0.2-1.3) mg/dL AST (14-36) IU/L ALT (<35) IU/L Alkaline Phosphatase (38-126) U/L Total Creatine Kinase (30-135) U/L CK-MB (CK-2) CK-MB (CK-2) Rel Index Troponin I (0.01-0.034) ng/mL Total Protein (6.3-8.2) g/dL Albumin (3.5-5.0) g/dL Globulin (1.7-4.1) g/dL Albumin/Globulin Ratio (1.0-2.8) TSH (0.47-4.68) uIU/mL Urine Color Yellow Urine Appearance Slightly cloudy Urine pH 7.5 (4.5-8.0) Ur Specific Nitro 1.015 (1.000-1.035) Urine Protein 2+ H (Negative) Urine Glucose (UA) Negative (Negative) g/dL Urine Ketones 2+ H (NEGATIVE) Urine Occult Blood Trace-intact (Negative) Urine Nitrate Negative (Negative) Urine Bilirubin Negative (NEGATIVE) Urine Urobilinogen 0.2 (0.2) E.U./dL Ur Leukocyte Esterase Negative (NEGATIVE) Urine RBC 1-5/hpf (0-5/HPF) Urine WBC 5-10/hpf H (0-5/HPF) Ur Squamous Epith Cells 1-5 /hpf (0-5/HPF) Ur Renal Epithelial Cell 1-5/hpf H (0-1/HPF) Amorphous Sediment 1+ Urine Bacteria Few (2-10) H (None) Ur Culture Indicated? Specimen cultured U Opiates 300ng/mL cut Negative (Negative) Ur Oxycodone Screen Negative (Negative) Urine Methadone Screen Negative (Negative) Ur Barbiturates Screen Negative (Negative) U Tricyclic Antidepress Negative (Negative) Ur Phencyclidine Scrn Negative (Negative) Ur Amphetamines Screen Negative (Negative) U Methamphetamines Scrn Negative (Negative) Ur MDMA Scrn (Ecstasy) Negative (Negative) U Benzodiazepines Scrn Negative (Negative) Urine Cocaine Screen Negative (Negative) U Marijuana (THC) Screen Positive H (Negative) Ethyl Alcohol ( - 10) mg/dL SARS-CoV-2 (PCR) Negative (Negative) Influenza A (RT-PCR) Flu a negative (NEGATIVE) Influenza B (RT-PCR) Flu b negative (NEGATIVE) RSV (PCR) Negative (Negative) Point of Care Testing Glucose POC [address] scan - head: Radiologist's Impression: Close Chest X-Ray (Signed) Stephen Davidson - 12/05/22 Knee MRI (Signed) Alexis Roldan - 08/06/22 Knee X-Ray (Signed) Yuriy Arana - 07/25/22 Ankle X-Ray (Signed) Luke Shi - 04/24/[address] (Signed) Saeed Waldron - 12/02/[address] (Signed) Ibeth Stallings - 01/28/21 Abdomen X-Ray (Signed) Nela Pan - 02/14/19 Pelvis Ultrasound (Signed) Lemuel Mittal - 02/11/19 Shoulder X-Ray (Signed) Lev Acuna - 11/30/18 Elbow X-Ray (Signed) Phoenix Bunn - 11/30/18 Hip X-Ray (Signed) Phoenix Bunn - 11/30/18 Launch?[address] [address] XRay Report Signed Patient: Nicolle Butler MR#: [id number] : 05/02/1972 Acct:[id number] Age/Sex: 50 / F Date of Service: 12/05/22 Loc: ED Accession Number: [id number] ?? Procedure: XR chest 1V Ordering Provider: Jessica Soto D.O. PROCEDURE:? XR CHEST 1V ? INDICATIONS:? chest pain ? TECHNIQUE:? One view of the chest was acquired.? ? COMPARISON:? None. ? FINDINGS:? ? Surgical changes and devices:? None.? ? Lungs and pleura:? Low lung volumes.? No dense consolidation or pleural effusion. ? Mediastinum:? Mediastinal contours appear normal.? Heart size is normal.? ? Bones and chest wall:? No suspicious bony lesions.? Overlying soft tissues appear unremarkable.? ? IMPRESSION:? No acute radiographic abnormality. ? ? Dictated by: Stephen Davidson M.D. on 12/05/2022 at 11:06 ? ? Approved by: Stephen Davidson M.D. on 12/05/2022 at 11:07?? Chest x-ray: Radiologist's Impression: Beatriz Renteria??62??F??1960 ? Allergy/Adv: house dust, perfume, tree and shrub pollen (More??) Close Chest X-Ray (Signed) Yuriy Arana - 12/05/[address] (Signed) Reji Pan - 12/05/22 Mammogram Screening (Signed) Samra Isidro - 09/02/19 Mammogram Screening (Signed) Annie Craft - 09/01/18 Thyroid Ultrasound (Signed) Bk Bhardwaj - 04/21/18 Launch?[address] [address] XRay Report Signed Patient: Beatriz Renteria MR#: [id number] : 1960 Acct:[id number] Age/Sex: 62 / F Date of Service: 12/05/22 Loc: ED Accession Number: [id number] ?? Procedure: XR chest 1V Ordering Provider: Jessica Soto D.O. PROCEDURE:? XR CHEST 1V ? INDICATIONS:? Possible stroke ? TECHNIQUE:? One view of the chest was acquired.? ? COMPARISON:? None. ? FINDINGS:? ? Surgical changes and devices:? None.? ? Lungs and pleura:? Lungs are clear.? No pleural effusions or pneumothorax.? ? Mediastinum:? Mediastinal contours appear normal.? Heart size is normal.? ? Bones and chest wall:? No suspicious bony lesions.? Overlying soft tissues [place] ear unremarkable.? ? IMPRESSION:? No acute cardiopulmonary abnormality. ? ? ? Dictated by: Yuriy Arana M.D. on 12/05/2022 at 12:32 ? ? Approved by: Yuriy Arana M.D. on 12/05/2022 at 12:32?? CTA - brain/neck: Radiologist's Impression: Close Head/Neck CTA (Signed) Abdirahman Zamora - 12/05/[address] (Signed) Reji Pan - 12/05/22 Chest X-Ray (Signed) Yuriy Arana - 12/05/22 Launch?[place] [address] CT Scan Report Signed Patient: Beatriz Renteria MR#: [id number] : 1960 Acct:[id number] Age/Sex: 62 / F Date of Service: 12/05/22 Loc: ED Accession Number: [id number] ?? Procedure: CT angio head and neck Ordering Provider: Jessica Soto D.O. PROCEDURE:? CT ANGIO HEAD AND NECK ? INDICATIONS:? gill, htn, memory problems ? TECHNIQUE:? Pre-contrast 4.5 mm thick sections acquired from the foramen magnum to the vert ex.? After the administration of intravenous contrast, 1 mm thick sections acquired from the aortic arch through the [place] of [place].? Post-contrast 4.5 mm thick sections then re- acquired from the foramen magnum to the vertex.? 3-dimensional fouaxce-krdyclujf-jskcmgoblp (MIP) and/or volume rendering reformats were acquired of the central intracranial vasculature and neck separately. For radiation dose reduction, the following was used:? automated exposure control, adjustment of mA and/or kV according to patient size.? ? COMPARISON:? [facility], , US FINE NEEDLE ASPIRATION THYROID, 06/15/2018, 11:23. ? FINDINGS:? Image quality:? Excellent.? ? BRAIN:? CSF spaces:? Ventricles are normal in size and shape.? Basal cisterns are patent.? No extra-axial fluid collections.? ? Brain:? No midline shift.? No intracranial bleeds or masses.? Mcdonald-white matter interface appears intact.? ? Skull and face:? Calvarium and facial bones appear intact, without suspicious lesions.? Orbits appear normal.? ? Sinuses:? Sinuses and mastoids are clear.? ? HEAD CT ANGIOGRAPHY:? Anterior circulation:? Intracranial internal carotid arteries are normal in size and flow.? The flow within the paired anterior cerebral arteries is normal and symmetric.? The flow within the middle cerebral arteries is normal and symmetric.? The anterior communicating artery is seen.? No aneurysms are seen.? ? Posterior circulation:? Visualized portions of the vertebral arteries demonstrate normal caliber, and join to form a normal appearing basilar artery.? Flow within the posterior cerebral arteries is normal and symmetric.? No aneurysms are seen.? ? NECK CT ANGIOGRAPHY:? Carotid system:? The great vessels demonstrate a conventional anatomy as they arise from the aortic arch.? The origins of the common carotid arteries appear patent.? The common carotid arteries demonstrate normal caliber and courses.? The bifurcation regions are both widely patent.? The internal carotid arteries demonstrate normal calibers and courses.? ? Posterior circulation:? The origins of the vertebral arteries both appear widely patent.? The more superior extracranial portions of both vertebral arteries also demonstrate normal courses and calibers.? They join to form a normal appearing basilar artery.? ? Soft tissues:? Visualized neck soft tissues demonstrate no suspicious abnormalities except at the thyroid gland where bilateral thyroid nodules appear present.? There is a sub cm hypodense nodule within the middle 3rd right thyroid lobe and a significantly larger nodule enlarging the lower 3rd of the left thyroid lobe, possibly measuring up to 2 cm in diameter..? ? Bones:? No suspicious bony lesions.? Visualized cervical spine appears normally aligned.? IMPRESSION:? ? 1.? Two separate thyroid nodules are present, large on the left and small on the right.? Dedicated elective follow-up thyroid ultrasound may be warranted.? It is noted that prior thyroid ultrasound scanning has been performed in 2018 including biopsy procedures.? Accurate comparison between the current CT scanning and the prior ultrasound scanning is not possible. ? 2.? Source of current symptoms is not found.? No mass, stroke or intracranial hemorrhage is found.? No significant cervical or intracranial arterial stenosis is identified.? ? Any quantitative measurements of stenosis were performed using NASCET criteria.? ? ? Dictated by: Abdirahman Zamora M.D. on 12/05/2022 at 15:22 ? ? Approved by: Abdirahman Zamora M.D. on 12/05/2022 at 15:27?? ECG Data Attestation: I personally reviewed and interpreted this ECG as follows: Interpretation: Sinus rhythm with sinus arrhythmia rate of 90 VA 148 QRS of [address] No acute [address] changes appreciated. MDM Narrative Medical decision making narrative: This is a 62-year-old female who had nausea and vomiting and diarrhea overnight and then this morning according to her was normal when she woke up took a nap and then had short-term memory issues. Patient does not have any known medical issues she is hypertensive here today and has increased during her stay her patient notes she may have been borderline but do not think she has chronic hypertension but she does not see a PCP regularly. She drinks an alcoholic drink most days but does not have any other signs of alcohol withdrawal. Patient neurologic exam is normal except for she is with short-term memory and she is actually very good giving history accept when asked very specific questions about the last [address] is negative, labs do not show any major abnormalities such as hypoglycemia, no hyponatremia. Point of care glucose was normal. Patient has a mild leukocytosis but is afebrile and my suspicion for meningitis is quite low as it is only short-term memory without any other neurologic changes, her exam and history are not very suspicious for seizure. Rapid drug screen positive for THC which both patient marcy ahmadi states she uses otherwise negative. CT angio is obtained and is negative. suspect hypertensive urgency/crisis, PRESS versus transient global amnesia as most likely causes discussed with Dr. Arenas with tele stroke/Neurology at [facility] recommends goal blood pressure reduction no more than 25% with short-acting antihypertensive, observation overnight and MRI if persisting symptoms. Spoke with Dr. Stevenson who accepts for observation he did consult with [facility] ICU plan for nicardipine drip. Patient had 1 dose of beta- hannah which had minimal change. Patient on recheck still has memory issues she does not recall our conversation from before. She still has no acute changes and NIH is 0 today, with an abrupt onset according to her who states she is not as repetitive but still has short term changes. Patient was not given antiplatelets as suspension was more for trace it global amnesia or possibly press or hypertensive emergency. Stroke Core Measures Contraindications for TPA in CVA: SBP>185;DBP>110 Despite Repeated Treatment and Determinations Critical Care Time Critical Care Time Critical Care Time: Yes Total Critical Care Time: 45 Attestation: The high probability of a clinically significant, sudden or life threatening deterioration of the [neuro] system(s) required my full and direct attention, intervention and personal management. The aggregate critical care time was [] minutes. This time is in addition to time spent performing reported procedures but includes the following: x] Data Review and interpretation [x] Patient assessment and monitoring of vital signs [x] Documentation [x] Medication orders and management Discharge Plan Departure Patient Disposition: Admitted As Inpatient Clinical Impression: Global amnesia, Hypertensive urgency Admit Date/Time: 12/05/22 17:03 Admit Provider: Giles Hanson
[2022-12-05] MEDS: ONDANSETRON 4 MG/2 ML INJ IV ×2 (14:55→20:37)
[2022-12-05] MEDS: METOPROLOL TARTRATE 5 MG/5 ML INJ IV (15:35)
[2022-12-05 15:37] LABS: Bilirubin Urine UA NEGATIVE (NEGATIVE); Color Urine UA YELLOW; Glucose Urine UA NEGATIVE (Negative); Ketones Urine UA 2+ (NEGATIVE); Leukocyte Esterase Urine UA NEGATIVE (NEGATIVE); Nitrite Urine UA NEGATIVE (Negative); Occult Blood Urine UA TRACE-INTACT (Negative); Protein Urine UA 2+ (Negative); Specific Gravity Urine UA 1.015 (1.000-1.035); Urobilinogen Urine UA 0.2 E.U./dL (0.2)
[2022-12-05 15:43] LABS: UR Morphine/Opiate cutoff 300 Negative (Negative); Ur Creatinine Normal (Normal); Ur Specific Gravity Normal (Normal); Urine Amphetamines Negative (Negative); Urine Barbiturates Negative (Negative); Urine Benzodiazepines Negative (Negative); Urine Cocaine Negative (Negative); Urine MDMA Negative (Negative); Urine Methadone Negative (Negative); Urine Methamphetamines Negative (Negative); Urine Oxycodone Negative (Negative); Urine Phencyclidine Negative (Negative); Urine Tetrahydrocannabinol Positive (Negative); Urine Tricyclic Antidepressant Negative (Negative); Urine pH Normal (Normal)
[2022-12-05 15:48] LABS: Ethanol (ETOH) < 10 mg/dL
[2022-12-05 16:01] LABS: Appearance Urine UA Slightly Cloudy; pH Urine UA 7.5 (4.5-8.0)
[2022-12-05 16:02] LABS: Amorphous Sediment Urine 1+; Bacteria Urine Few (2-10); Culture Indicated Urine Specimen Cultured; RBC Urine 1-5/HPF (0-5/HPF); Renal Epithelial Cells Urine 1-5/HPF (0-1/HPF); Squamous Epithelial Cell Urine 1-5 /HPF (0-5/HPF); WBC Urine 5-10/HPF (0-5/HPF)
--- NOTE | 2022-12-05 16:25 | DI.MRI.S_ITS ---
PROCEDURE: MR HEAD/BRAIN WO CON INDICATIONS: htn, amnesia TECHNIQUE: Non-contrast axial T1 spin echo, axial T2 fast spin echo, sagittal and axial FLAIR, coronal T2 fast spin echo, axial gradient echo, axial diffusion and ADC through the brain. COMPARISON: [facility], CT, CT ANGIO HEAD AND NECK, 12/05/2022, 14:58. [facility], CT, CT STROKE, 12/05/2022, 12:12. FINDINGS: Image quality: Excellent. CSF spaces: Ventricles appear symmetric in size and shape. Basal cisterns are patent. No extra-axial fluid collections. Brain: No intracranial bleeds or mass effects. There is cerebral volume loss for age. There are periventricular and deep white matter chronic small vessel ischemic changes. Brainstem appears normal. Diffusion-weighted images show no acute ischemic insults. No chronic ischemic insults. Normal intravascular flow voids are present. Skull and face: Calvarial bone marrow is normal in signal. Orbits are normal. Sinuses: Sinuses and mastoids are clear. IMPRESSION: 1. No acute infarction. No intracranial bleed, midline shift or mass effect. 2. Volume loss appropriate for patient's age. Mild white matter chronic small vessel ischemic changes. Dictated by: Alexis Roldan M.D. on 12/05/2022 at 19:10 Approved by: Alexis Roldan M.D. on 12/05/2022 at 19:11
--- NOTE | 2022-12-05 16:33 | PC.NURSE ---
pt given water to sip on. okayed with provider. pt educated on not drinking a large amount and not drinking while feeling nauseated. pt worried about getting dehydrated and took 3 sips of water. pt began to vomit within 5 minutes
[2022-12-05 16:42] LABS: Thyroid Stimulating Hormone 1.12 uIU/mL (0.47-4.68)
[2022-12-05] MEDS: NICARDIPINE 25 MG in SODIUM CHLORIDE 0.9% 240 ML 50 MG IV (17:22)
--- NOTE | 2022-12-05 18:05 | P.TELICUCN_ITS ---
History of Present Illness Consult details IF CAMERA ACTIVATED, patient seen via real-time interactive audiovisual communication: Camera activated Date Patient Seen: 12/05/22 Chief complaint: throwing up as of last night, memory is lost Reason for consult: Hypertensive encephalopathy Requesting provider: Giles Hanson Consent obtained for tele-major assembler care: Yes Patient Location: ICU Provider location (State): [place] Other participants/roles: Dr. Hanson and bedside RN Narrative: Patient is a 62 year old female with history of seasonal allergies and celiac disease who presents with N/V and diarrhea. Per , he noticed patient to have difficulty remembering recent events. No reported fever/chills, chest pain, shortness of breath, dysuria, weakness, loss of sensation, blurry vision, dizziness, or abdominal pain. On presentation she was found to have SBP ~220s. Stat CTH negative for acute abnormality. Received multiple pushes of labetalol with minimal improvement. Started on cardene gtt and admitted to ICU for further management. In ICU, patient reports feeling nauseous. She feels like her memory are back to normal. Current MAP ~99 and cardene on hold. [facility] Medical History Chickenpox (1961) Chronic back pain (1986) Herpes (1985) Hypothyroidism (1971) Measles (1960) Mumps (1962) Pneumonia (2017) Surgical History Hx of dilation and curettage (1981) Hx of tonsillectomy (~1962) Family History Father Atrial fibrillation, chronic Macular degeneration Hypertension Hyperlipidemia Mother Cancer Brain tumor Grandfather No problems noted. Grandmother Cancer Grandfather No problems noted. Grandmother No problems noted. Brother Cancer Social History household members: spouse Smoking Status: Former smoker Tobacco: How many years used: 10 alcohol intake: current substance use type: does not use Current Medications Current Medications Medications: Home Medications cetirizine 10 mg capsule (Zyrtec) 10 mg PO DAILY 03/19/18 [History Confirmed 10/11/19] triamcinolone acetonide 55 mcg nasal spray aerosol (Nasacort) 1 spray intranasal DAILY 03/19/18 [History Confirmed 10/11/19] acetaminophen 325 mg capsule 650 mg PO ONCE #2 caps 01/27/19 [Rx Confirmed 10/11/19] adjuvant AS01B (PF)vial 1 of 2 (Shingrix Adjuvant Component (PF) intramuscular suspension) 0.5 ml IM ONCE #0.5 mL 05/13/19 [Rx Confirmed 10/11/19] cyclobenzaprine 10 mg tablet 10 mg PO ONCE PRN muscle spasm #30 tabs 08/16/19 [Rx Confirmed 10/11/19] Visit Medications (administered) Generic Name Dose Route Start Last Admin Trade Name Freq PRN Reason Stop Dose Admin Nicardipine HCl 25 mg/ Sodium 250 mls @ 50 mls/hr 12/05/22 17:00 12/05/22 17:22 Chloride IV 5 mg/hr TITRATE MC 50 mls/hr Administration Protocol 5 MG/HR Ondansetron HCl 4 mg 12/05/22 12:07 12/05/22 14:55 Ondansetron 4 Mg/2 Ml Inj IV 4 mg NOW PRN Administration Nausea And Vomiting Exam Vital Signs (past 8 hours): - 12/05/22 11:55 12/05/22 13:14 12/05/22 13:14 Temperature 98.8 F Pulse Rate 100 H 91 H Respiratory Rate 16 Blood Pressure 159/81 H 218/100 H Pulse Oximetry 97 98 Oxygen Delivery Method Room Air 12/05/22 13:15 12/05/22 13:26 12/05/22 13:26 Temperature Pulse Rate 90 90 Respiratory Rate 14 18 Blood Pressure 224/98 H Pulse Oximetry 99 98 Oxygen Delivery Method Room Air 12/05/22 13:30 12/05/22 13:31 12/05/22 13:31 Temperature Pulse Rate 91 H 91 H Respiratory Rate 19 20 Blood Pressure 217/106 H Pulse Oximetry 99 99 Oxygen Delivery Method 12/05/22 13:45 12/05/22 13:46 12/05/22 13:46 Temperature Pulse Rate 87 88 Respiratory Rate 16 20 Blood Pressure 204/118 H Pulse Oximetry 99 99 Oxygen Delivery Method 12/05/22 14:00 12/05/22 14:00 12/05/22 14:15 Temperature Pulse Rate 84 Respiratory Rate 20 Blood Pressure 206/97 H 201/96 H Pulse Oximetry 94 Oxygen Delivery Method Room Air 12/05/22 14:15 12/05/22 14:30 12/05/22 14:31 Temperature Pulse Rate 83 97 H 98 H Respiratory Rate 21 15 14 Blood Pressure Pulse Oximetry 93 98 98 Oxygen Delivery Method 12/05/22 14:31 12/05/22 14:45 12/05/22 14:45 Temperature Pulse Rate 98 H Respiratory Rate 16 Blood Pressure 223/106 H 209/106 H Pulse Oximetry 98 Oxygen Delivery Method 12/05/22 15:10 12/05/22 15:11 12/05/22 15:11 Temperature Pulse Rate 95 H 94 H Respiratory Rate 29 H 20 Blood Pressure 193/91 H Pulse Oximetry 98 98 Oxygen Delivery Method 12/05/22 15:15 12/05/22 15:15 12/05/22 15:30 Temperature Pulse Rate 92 H Respiratory Rate 16 Blood Pressure 209/110 H 207/113 H Pulse Oximetry 98 Oxygen Delivery Method 12/05/22 15:30 12/05/22 15:40 12/05/22 15:40 Temperature Pulse Rate 84 85 Respiratory Rate 22 17 Blood Pressure 199/136 H Pulse Oximetry 93 95 Oxygen Delivery Method 12/05/22 15:45 12/05/22 15:45 12/05/22 15:50 Temperature Pulse Rate 69 Respiratory Rate 13 Blood Pressure 195/132 H 205/115 H Pulse Oximetry 93 Oxygen Delivery Method 12/05/22 15:50 12/05/22 15:55 12/05/22 15:55 Temperature Pulse Rate 72 72 Respiratory Rate 16 15 Blood Pressure 205/113 H Pulse Oximetry 93 93 Oxygen Delivery Method 12/05/22 16:00 12/05/22 16:01 12/05/22 16:01 Temperature Pulse Rate 73 71 Respiratory Rate 16 16 Blood Pressure 220/118 H Pulse Oximetry 92 92 Oxygen Delivery Method 12/05/22 16:05 12/05/22 16:05 12/05/22 16:10 Temperature Pulse Rate 73 76 Respiratory Rate 14 18 Blood Pressure 228/115 H Pulse Oximetry 93 93 Oxygen Delivery Method 12/05/22 16:10 12/05/22 16:15 12/05/22 16:15 Temperature Pulse Rate 73 Respiratory Rate 18 Blood Pressure 211/111 H 213/106 H Pulse Oximetry 93 Oxygen Delivery Method 12/05/22 16:20 12/05/22 16:20 12/05/22 16:25 Temperature Pulse Rate 75 78 Respiratory Rate 16 22 Blood Pressure 202/96 H Pulse Oximetry 94 95 Oxygen Delivery Method 12/05/22 16:25 12/05/22 16:30 12/05/22 16:30 Temperature Pulse Rate 74 Respiratory Rate 25 H Blood Pressure 213/100 H 218/103 H Pulse Oximetry 94 Oxygen Delivery Method 12/05/22 16:35 12/05/22 16:35 12/05/22 16:40 Temperature Pulse Rate 74 74 Respiratory Rate 23 15 Blood Pressure 222/126 H Pulse Oximetry 92 93 Oxygen Delivery Method 12/05/22 16:40 12/05/22 16:45 12/05/22 16:45 Temperature Pulse Rate 72 Respiratory Rate 14 Blood Pressure 215/102 H 206/100 H Pulse Oximetry 94 Oxygen Delivery Method 12/05/22 17:00 12/05/22 17:00 12/05/22 17:15 Temperature Pulse Rate 74 74 Respiratory Rate 17 21 Blood Pressure 203/103 H Pulse Oximetry 93 97 Oxygen Delivery Method 12/05/22 17:20 12/05/22 17:22 12/05/22 17:22 Temperature Pulse Rate 76 71 Respiratory Rate 18 21 Blood Pressure 223/107 H Pulse Oximetry 97 96 Oxygen Delivery Method 12/05/22 17:25 12/05/22 17:25 Temperature Pulse Rate 72 Respiratory Rate Blood Pressure 212/97 H Pulse Oximetry 96 Oxygen Delivery Method Oxygen Delivery Method Room Air Narrative Exam Narrative: Speaking in full sentence. Not in acute distress. Objective Labs 12/05/22 13:11 12/05/22 13:11 Labs: Laboratory Results - last 24 hr 12/05/22 12/05/22 12/05/22 12:05 13:11 13:11 WBC 12.7 H RBC 4.39 Hgb 14.5 Hct 42.4 MCV 96.4 MCH 33.0 MCHC 34.3 RDW 12.6 Plt Count 183 Neut % (Auto) 90.0 H Lymph % (Auto) 5.9 L [place] % (Auto) 3.5 Eos % (Auto) 0.1 L Baso % (Auto) 0.5 Neut # (Auto) 24834 H Lymph # (Auto) 700 L [place]pher[place] # (Auto) 400 Eos # (Auto) 0 Baso # (Auto) 100 PT 11.9 INR 1.0 APTT 18 L Sodium Potassium Chloride Carbon Dioxide BUN Creatinine Estimated GFR BUN/Creatinine Ratio Glucose Calcium Magnesium Total Bilirubin AST ALT Alkaline Phosphatase Total Creatine Kinase CK-MB (CK-2) CK-MB (CK-2) Rel Index Troponin I Total Protein Albumin Globulin Albumin/Globulin Ratio TSH Urine Color Urine Appearance Urine pH Ur Specific [place] Urine Protein Urine Glucose (UA) Urine Ketones Urine Occult Blood Urine Nitrate Urine Bilirubin Urine Urobilinogen Ur Leukocyte Esterase Urine RBC Urine WBC Ur Squamous Epith Cells Ur Renal Epithelial Cell Amorphous Sediment Urine Bacteria Ur Culture Indicated? U Opiates 300ng/mL cut Negative Ur Oxycodone Screen Negative Urine Methadone Screen Negative Ur Barbiturates Screen Negative U Tricyclic Antidepress Negative Ur Phencyclidine Scrn Negative Ur Amphetamines Screen Negative U Methamphetamines Scrn Negative Ur MDMA Scrn (Ecstasy) Negative U Benzodiazepines Scrn Negative Urine Cocaine Screen Negative U Marijuana (THC) Screen Positive H Ethyl Alcohol SARS-CoV-2 (PCR) Influenza A (RT-PCR) Influenza B (RT-PCR) RSV (PCR) 12/05/22 12/05/22 12/05/22 13:11 13:11 13:25 WBC RBC Hgb Hct MCV MCH MCHC RDW Plt Count Neut % (Auto) Lymph % (Auto) [place] % (Auto) Eos % (Auto) Baso % (Auto) Neut # (Auto) Lymph # (Auto) [place] # (Auto) Eos # (Auto) Baso # (Auto) PT INR APTT Sodium 138 Potassium 3.9 Chloride 99 Carbon Dioxide 25 BUN 10 Creatinine 0.82 Estimated GFR > 60 BUN/Creatinine Ratio 12.2 Glucose 118 H Calcium 9.4 Magnesium 1.9 Total Bilirubin 0.8 AST 30 ALT 25 Alkaline Phosphatase 75 Total Creatine Kinase 57 CK-MB (CK-2) TNP CK-MB (CK-2) Rel Index TNP Troponin I < 0.012 Total Protein 8.1 Albumin 4.6 Globulin 3.5 Albumin/Globulin Ratio 1.3 TSH 1.12 Urine Color Urine Appearance Urine pH Ur Specific [place] Urine Protein Urine Glucose (UA) Urine Ketones Urine Occult Blood Urine Nitrate Urine Bilirubin Urine Urobilinogen Ur Leukocyte Esterase Urine RBC Urine WBC Ur Squamous Epith Cells Ur Renal Epithelial Cell Amorphous Sediment Urine Bacteria Ur Culture Indicated? U Opiates 300ng/mL cut Ur Oxycodone Screen Urine Methadone Screen Ur Barbiturates Screen U Tricyclic Antidepress Ur Phencyclidine Scrn Ur Amphetamines Screen U Methamphetamines Scrn Ur MDMA Scrn (Ecstasy) U Benzodiazepines Scrn Urine Cocaine Screen U Marijuana (THC) Screen Ethyl Alcohol < 10 SARS-CoV-2 (PCR) Influenza A (RT-PCR) Influenza B (RT-PCR) RSV (PCR) 12/05/22 12/05/22 12/05/22 13:33 15:33 15:34 WBC RBC Hgb Hct MCV MCH MCHC RDW Plt Count Neut % (Auto) Lymph % (Auto) [place] % (Auto) Eos % (Auto) Baso % (Auto) Neut # (Auto) Lymph # (Auto) [place] # (Auto) Eos # (Auto) Baso # (Auto) PT INR APTT Sodium Potassium Chloride Carbon Dioxide BUN Creatinine Estimated GFR BUN/Creatinine Ratio Glucose Calcium Magnesium Total Bilirubin AST ALT Alkaline Phosphatase Total Creatine Kinase CK-MB (CK-2) CK-MB (CK-2) Rel Index Troponin I Total Protein Albumin Globulin Albumin/Globulin Ratio TSH Urine Color Yellow Urine Appearance Slightly cloudy Urine pH 7.5 Ur Specific [place] 1.015 Urine Protein 2+ H Urine Glucose (UA) Negative Urine Ketones 2+ H Urine Occult Blood Trace-intact Urine Nitrate Negative Urine Bilirubin Negative Urine Urobilinogen 0.2 Ur Leukocyte Esterase Negative Urine RBC 1-5/hpf Urine WBC 5-10/hpf H Ur Squamous Epith Cells 1-5 /hpf Ur Renal Epithelial Cell 1-5/hpf H Amorphous Sediment 1+ Urine Bacteria Few (2-10) H Ur Culture Indicated? Specimen cultured U Opiates 300ng/mL cut Negative Ur Oxycodone Screen Negative Urine Methadone Screen Negative Ur Barbiturates Screen Negative U Tricyclic Antidepress Negative Ur Phencyclidine Scrn Negative Ur Amphetamines Screen Negative U Methamphetamines Scrn Negative Ur MDMA Scrn (Ecstasy) Negative U Benzodiazepines Scrn Negative Urine Cocaine Screen Negative U Marijuana (THC) Screen Positive H Ethyl Alcohol SARS-CoV-2 (PCR) Negative Influenza A (RT-PCR) Flu a negative Influenza B (RT-PCR) Flu b negative RSV (PCR) Negative Assessment & Plan Assessment and plan (1) Hypertensive emergency: Status: Acute Plan: -- Secondary to untreated HTN -- Currently off cardene gtt -- Will reduce BP gradually (~25% in the next 24 hours) -- MAP goal ~100 -- Recommend starting oral BP meds per primary bedside team (2) Encephalopathy: Status: Acute Plan: -- Secondary to HTN encephalopathy. Other ddx include acute CVA. -- No focal deficits noted per patient and hospitalist report -- Neurocheck q4hr -- Check TTE -- Stat CTH for acute neurological deterioration -- Pending MRI brain -- Will send lipid panel and HbA1c -- On lipitor and ASA for secondary prophylaxis Time Spent With Patient Critical Care time: I spent a total of 35 minutes of critical care time on this patient's care today; this time is exclusive of procedural time.
--- NOTE | 2022-12-05 18:15 | P.HP_ITS ---
History of Present Illness History of Present Illness Date Patient Seen: 12/05/22 Time Patient Seen: 18:15 Chief complaint: throwing up as of last night, memory is lost Narrative: This is a 62 year old female with only reported history of allergies who presented to the emergency room over concerns about short term memory. Per her , she started having nausea, vomiting and diarrhea last night after dinner. She took a nap this morning, but when she awoke she was confused with difficulty particularly with short term memory. She is able to tell her history, but is not so clear about today's events. states he would have to repeat things for her every couple of minutes. 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 She denies chest pain, shortness of breath, orthopnea, + snoring but no apnea per spouse, LE edema, papitations, numbness, tingling, and no seizure activity was noted. She denies abdominal pain, dysuria, or urginary frequency. In the emergency room, the patient was markedly hypertensive with max BP 228/1 15, but the remainder of her vital signs were unremarkable. Laboratory evaluation revealed a mild leukocytosis with WBC 12.7, coagulation studies were unremarkable except for a low APTT at 18. Chemistries were also unremarkable, troponin was negative. Urinalysis showed 5-10 wbc's, though was contaminated with some squamous cells and was reflexed for further culture. Urine drug Screen was positive for marijuana. Head CT, CT angiogram, and chest x-ray were unremarkable with no acute pathologies found, though she had thyroid nodules noted which she reports previous thyroid biopsies.. Patient History Medical History Chickenpox (1961) Chronic back pain (1986) Herpes (1985) Hypothyroidism (1971) Measles (1960) Mumps (1962) Pneumonia (2017) Surgical History Hx of dilation and curettage (1981) Hx of tonsillectomy (~1962) Family & Social History Family History Father Atrial fibrillation, chronic Macular degeneration Hypertension Hyperlipidemia Mother Cancer Brain tumor Grandfather No problems noted. Grandmother Cancer Grandfather No problems noted. Grandmother No problems noted. Brother Cancer Safety & Behavioral: Feels Safe in Current Yes Environment Been Physically Hurt or No Threatened By a Person Tobacco & Substance use: Smoking Status Former smoker alcohol intake current alcohol intake frequency 0-2 drinks per day Substance Use Type marijuana Meds Home Medications and Allergies Home Medications Medication Instructions Recorded Confirmed Type cetirizine 10 mg capsule (Zyrtec) 10 mg PO DAILY 03/19/18 10/11/19 History triamcinolone acetonide 55 mcg 1 spray intranasal DAILY 03/19/18 10/11/19 History nasal spray aerosol (Nasacort) acetaminophen 325 mg capsule 650 mg PO ONCE #2 caps 01/27/19 10/11/19 Rx adjuvant AS01B (PF)vial 1 of 2 0.5 ml IM ONCE #0.5 mL 05/13/19 10/11/19 Rx (Shingrix Adjuvant Component (PF) intramuscular suspension) cyclobenzaprine 10 mg tablet 10 mg PO ONCE PRN muscle spasm #30 08/16/19 10/11/19 Rx tabs Allergies Allergy/AdvReac Type Severity Reaction Status Date / Time house dust Allergy Mild Verified 12/05/22 14:01 perfume Allergy Mild Verified 12/05/22 14:01 tree and shrub pollen Allergy Mild Post nasal Verified 12/05/22 14:01 drip Review of Systems Review of Systems Narrative: All other systems reviewed with the patient and are negative unless otherwise stated. Exam Vital Signs (past 8 hours): - 12/05/22 11:55 12/05/22 13:14 12/05/22 13:14 Temperature 98.8 F Pulse Rate 100 H 91 H Respiratory Rate 16 Blood Pressure 159/81 H 218/100 H Pulse Oximetry 97 98 Oxygen Delivery Method Room Air 12/05/22 13:15 12/05/22 13:26 12/05/22 13:26 Temperature Pulse Rate 90 90 Respiratory Rate 14 18 Blood Pressure 224/98 H Pulse Oximetry 99 98 Oxygen Delivery Method Room Air 12/05/22 13:30 12/05/22 13:31 12/05/22 13:31 Temperature Pulse Rate 91 H 91 H Respiratory Rate 19 20 Blood Pressure 217/106 H Pulse Oximetry 99 99 Oxygen Delivery Method 12/05/22 13:45 12/05/22 13:46 12/05/22 13:46 Temperature Pulse Rate 87 88 Respiratory Rate 16 20 Blood Pressure 204/118 H Pulse Oximetry 99 99 Oxygen Delivery Method 12/05/22 14:00 12/05/22 14:00 12/05/22 14:15 Temperature Pulse Rate 84 Respiratory Rate 20 Blood Pressure 206/97 H 201/96 H Pulse Oximetry 94 Oxygen Delivery Method Room Air 12/05/22 14:15 12/05/22 14:30 12/05/22 14:31 Temperature Pulse Rate 83 97 H 98 H Respiratory Rate 21 15 14 Blood Pressure Pulse Oximetry 93 98 98 Oxygen Delivery Method 12/05/22 14:31 12/05/22 14:45 12/05/22 14:45 Temperature Pulse Rate 98 H Respiratory Rate 16 Blood Pressure 223/106 H 209/106 H Pulse Oximetry 98 Oxygen Delivery Method 12/05/22 15:10 12/05/22 15:11 12/05/22 15:11 Temperature Pulse Rate 95 H 94 H Respiratory Rate 29 H 20 Blood Pressure 193/91 H Pulse Oximetry 98 98 Oxygen Delivery Method 12/05/22 15:15 12/05/22 15:15 12/05/22 15:30 Temperature Pulse Rate 92 H Respiratory Rate 16 Blood Pressure 209/110 H 207/113 H Pulse Oximetry 98 Oxygen Delivery Method 12/05/22 15:30 12/05/22 15:40 12/05/22 15:40 Temperature Pulse Rate 84 85 Respiratory Rate 22 17 Blood Pressure 199/136 H Pulse Oximetry 93 95 Oxygen Delivery Method 12/05/22 15:45 12/05/22 15:45 12/05/22 15:50 Temperature Pulse Rate 69 Respiratory Rate 13 Blood Pressure 195/132 H 205/115 H Pulse Oximetry 93 Oxygen Delivery Method 12/05/22 15:50 12/05/22 15:55 12/05/22 15:55 Temperature Pulse Rate 72 72 Respiratory Rate 16 15 Blood Pressure 205/113 H Pulse Oximetry 93 93 Oxygen Delivery Method 12/05/22 16:00 12/05/22 16:01 12/05/22 16:01 Temperature Pulse Rate 73 71 Respiratory Rate 16 16 Blood Pressure 220/118 H Pulse Oximetry 92 92 Oxygen Delivery Method 12/05/22 16:05 12/05/22 16:05 12/05/22 16:10 Temperature Pulse Rate 73 76 Respiratory Rate 14 18 Blood Pressure 228/115 H Pulse Oximetry 93 93 Oxygen Delivery Method 12/05/22 16:10 12/05/22 16:15 12/05/22 16:15 Temperature Pulse Rate 73 Respiratory Rate 18 Blood Pressure 211/111 H 213/106 H Pulse Oximetry 93 Oxygen Delivery Method 12/05/22 16:20 12/05/22 16:20 12/05/22 16:25 Temperature Pulse Rate 75 78 Respiratory Rate 16 22 Blood Pressure 202/96 H Pulse Oximetry 94 95 Oxygen Delivery Method 12/05/22 16:25 12/05/22 16:30 12/05/22 16:30 Temperature Pulse Rate 74 Respiratory Rate 25 H Blood Pressure 213/100 H 218/103 H Pulse Oximetry 94 Oxygen Delivery Method 12/05/22 16:35 12/05/22 16:35 12/05/22 16:40 Temperature Pulse Rate 74 74 Respiratory Rate 23 15 Blood Pressure 222/126 H Pulse Oximetry 92 93 Oxygen Delivery Method 12/05/22 16:40 12/05/22 16:45 12/05/22 16:45 Temperature Pulse Rate 72 Respiratory Rate 14 Blood Pressure 215/102 H 206/100 H Pulse Oximetry 94 Oxygen Delivery Method 12/05/22 17:00 12/05/22 17:00 12/05/22 17:15 Temperature Pulse Rate 74 74 Respiratory Rate 17 21 Blood Pressure 203/103 H Pulse Oximetry 93 97 Oxygen Delivery Method 12/05/22 17:20 12/05/22 17:22 12/05/22 17:22 Temperature Pulse Rate 76 71 Respiratory Rate 18 21 Blood Pressure 223/107 H Pulse Oximetry 97 96 Oxygen Delivery Method 12/05/22 17:25 12/05/22 17:25 Temperature Pulse Rate 72 Respiratory Rate Blood Pressure 212/97 H Pulse Oximetry 96 Oxygen Delivery Method Oxygen Delivery Method Room Air Narrative Exam Narrative: General:? Patient is well developed and well nourished, mildly ill appearing with emesis bag constantly nearby. HEENT:? Normocephalic, atraumatic, extraocular muscles intact, oral pharynx is clear and mucous membranes are moist. Neck: supple and symmetric, trachea is midline, no cervical adenopathy. Negative for JVD Lungs:? CTA b/l no wheezing rhonchi or rales. Cardio:?RRR no m/r/g. Abdomen: soft and non-distended Musculoskeletal:? Muscle strength and tone are equal within normal limits, no deformity. Extremities: No edema or joint effusions. No cyanosis or clubbing. Neuro:? Alert and orientated x3,? sensation to touch intact in all extremities, no gross deficits noted of cranial nerves. Psych:? Patient has a well-kept appearance, appropriate affect, mental status attitude thought context and judgment are appropriate for age. Objective ECG Impression: Normal sinus rhythm with sinus arrhythmia Labs 12/05/22 13:11 12/05/22 13:11 Labs: Laboratory Results - last 24 hr 12/05/22 12/05/22 12/05/22 12:05 13:11 13:11 WBC 12.7 H RBC 4.39 Hgb 14.5 Hct 42.4 MCV 96.4 MCH 33.0 MCHC 34.3 RDW 12.6 Plt Count 183 Neut % (Auto) 90.0 H Lymph % (Auto) 5.9 L [place] % (Auto) 3.5 Eos % (Auto) 0.1 L Baso % (Auto) 0.5 Neut # (Auto) 29205 H Lymph # (Auto) 700 L [place] # (Auto) 400 Eos # (Auto) 0 Baso # (Auto) 100 PT 11.9 INR 1.0 APTT 18 L Sodium Potassium Chloride Carbon Dioxide BUN Creatinine Estimated GFR BUN/Creatinine Ratio Glucose Calcium Magnesium Total Bilirubin AST ALT Alkaline Phosphatase Total Creatine Kinase CK-MB (CK-2) CK-MB (CK-2) Rel Index Troponin I Total Protein Albumin Globulin Albumin/Globulin Ratio TSH Urine Color Urine Appearance Urine pH Ur Specific [place] Urine Protein Urine Glucose (UA) Urine Ketones Urine Occult Blood Urine Nitrate Urine Bilirubin Urine Urobilinogen Ur Leukocyte Esterase Urine RBC Urine WBC Ur Squamous Epith Cells Ur Renal Epithelial Cell Amorphous Sediment Urine Bacteria Ur Culture Indicated? U Opiates 300ng/mL cut Negative Ur Oxycodone Screen Negative Urine Methadone Screen Negative Ur Barbiturates Screen Negative U Tricyclic Antidepress Negative Ur Phencyclidine Scrn Negative Ur Amphetamines Screen Negative U Methamphetamines Scrn Negative Ur MDMA Scrn (Ecstasy) Negative U Benzodiazepines Scrn Negative Urine Cocaine Screen Negative U Marijuana (THC) Screen Positive H Ethyl Alcohol SARS-CoV-2 (PCR) Influenza A (RT-PCR) Influenza B (RT-PCR) RSV (PCR) 12/05/22 12/05/22 12/05/22 13:11 13:11 13:25 WBC RBC Hgb Hct MCV MCH MCHC RDW Plt Count Neut % (Auto) Lymph % (Auto) [place] % (Auto) Eos % (Auto) Baso % (Auto) Neut # (Auto) Lymph # (Auto) [place] # (Auto) Eos # (Auto) Baso # (Auto) PT INR APTT Sodium 138 Potassium 3.9 Chloride 99 Carbon Dioxide 25 BUN 10 Creatinine 0.82 Estimated GFR > 60 BUN/Creatinine Ratio 12.2 Glucose 118 H Calcium 9.4 Magnesium 1.9 Total Bilirubin 0.8 AST 30 ALT 25 Alkaline Phosphatase 75 Total Creatine Kinase 57 CK-MB (CK-2) TNP CK-MB (CK-2) Rel Index TNP Troponin I < 0.012 Total Protein 8.1 Albumin 4.6 Globulin 3.5 Albumin/Globulin Ratio 1.3 TSH 1.12 Urine Color Urine Appearance Urine pH Ur Specific [place] Urine Protein Urine Glucose (UA) Urine Ketones Urine Occult Blood Urine Nitrate Urine Bilirubin Urine Urobilinogen Ur Leukocyte Esterase Urine RBC Urine WBC Ur Squamous Epith Cells Ur Renal Epithelial Cell Amorphous Sediment Urine Bacteria Ur Culture Indicated? U Opiates 300ng/mL cut Ur Oxycodone Screen Urine Methadone Screen Ur Barbiturates Screen U Tricyclic Antidepress Ur Phencyclidine Scrn Ur Amphetamines Screen U Methamphetamines Scrn Ur MDMA Scrn (Ecstasy) U Benzodiazepines Scrn Urine Cocaine Screen U Marijuana (THC) Screen Ethyl Alcohol < 10 SARS-CoV-2 (PCR) Influenza A (RT-PCR) Influenza B (RT-PCR) RSV (PCR) 12/05/22 12/05/22 12/05/22 13:33 15:33 15:34 WBC RBC Hgb Hct MCV MCH MCHC RDW Plt Count Neut % (Auto) Lymph % (Auto) [place] % (Auto) Eos % (Auto) Baso % (Auto) Neut # (Auto) Lymph # (Auto) [place] # (Auto) Eos # (Auto) Baso # (Auto) PT INR APTT Sodium Potassium Chloride Carbon Dioxide BUN Creatinine Estimated GFR BUN/Creatinine Ratio Glucose Calcium Magnesium Total Bilirubin AST ALT Alkaline Phosphatase Total Creatine Kinase CK-MB (CK-2) CK-MB (CK-2) Rel Index Troponin I Total Protein Albumin Globulin Albumin/Globulin Ratio TSH Urine Color Yellow Urine Appearance Slightly cloudy Urine pH 7.5 Ur Specific [place] 1.015 Urine Protein 2+ H Urine Glucose (UA) Negative Urine Ketones 2+ H Urine Occult Blood Trace-intact Urine Nitrate Negative Urine Bilirubin Negative Urine Urobilinogen 0.2 Ur Leukocyte Esterase Negative Urine RBC 1-5/hpf Urine WBC 5-10/hpf H Ur Squamous Epith Cells 1-5 /hpf Ur Renal Epithelial Cell 1-5/hpf H Amorphous Sediment 1+ Urine Bacteria Few (2-10) H Ur Culture Indicated? Specimen cultured U Opiates 300ng/mL cut Negative Ur Oxycodone Screen Negative Urine Methadone Screen Negative Ur Barbiturates Screen Negative U Tricyclic Antidepress Negative Ur Phencyclidine Scrn Negative Ur Amphetamines Screen Negative U Methamphetamines Scrn Negative Ur MDMA Scrn (Ecstasy) Negative U Benzodiazepines Scrn Negative Urine Cocaine Screen Negative U Marijuana (THC) Screen Positive H Ethyl Alcohol SARS-CoV-2 (PCR) Negative Influenza A (RT-PCR) Flu a negative Influenza B (RT-PCR) Flu b negative RSV (PCR) Negative Assessment & Plan Assessment & Plan narrative: 1. Hypertensive emergency with acute metabolic / hypertensive encephalopathy - CT / CT angiogram head and neck initially unremarkable. - marked HTN with BP 228/115 in the ER. - nicardipine gtt with goal BP reduction around 20%. Goal SBP around 180. - symptom control with zofran. - MRI brain ordered, check TTE as well for possible CVA - can start oral medications tomorrow, if nausea is controlled and able to tolerate oral intake 2. Asymptomatic bacteuria - follow up urine cultures, no indication for antibiotic treatment at this time. 3. nausea/vomiting/diarrhea - unclear if viral illness, no reported recent antibiotics or symptoms of her hypertension - continue to monitor, consider C. diff if diarrhea continues. Patient reports family history of celiac's, does not eat gluten. Code: Full, surrogate is patient's spouse DVT: Lovenox daily Dispo: admit ICU on nicardipine infusion I have utilized all available immediate resources to obtain, update, or review the patient's current medications. Additional history obtained via patient's spouse: discussed care with ER provider as well as tele-machine ii trimmer service. I spent 35 minutes providing critical care management this patient. This excludes time spent in performing separately billed procedures. COVID-19 COVID-19 status: Negative Time Spent With Patient Critical Care time: I spent a total of [] minutes of critical care time on this patient's care today; this time is exclusive of procedural time. Quality MIPS - Admit I confirm the patient?s Advance Care Plan is present, Code status is documented, Surrogate decision maker is in patient?s record [If Yes, STOP here]: Yes
--- NOTE | 2022-12-05 20:15 | PM.ICURNDS ---
- Date Patient Seen: 12/05/22 Time Patient Seen: 20:15 :: This patient was seen via real time interactive two-way audiovisual telecommunication. Note: MAP remains ~100. Off cardene gtt. No focal deficits. Will continue to monitor. D/w RN at bedside.
[2022-12-06] VITALS (56 sets, daily range): BP systolic 107–181; BP diastolic 50–116; PULSE 66–97; RESP 13–28; TEMP 37.2–38; O2SAT 84–100
[2022-12-06] MEDS: ONDANSETRON 4 MG/2 ML INJ IV ×3 (04:30→20:19)
[2022-12-06 05:08] LABS: Add Manual Diff / Slide Review NO; Basophils Absolute Auto 0 /uL (0-100); Basophils Percent Auto 0.1 % (0-2); Eosinophils Absolute Auto 0 /uL (0-450); Hemoglobin 14.4 g/dL (12.0-16.0); Lymphocytes Absolute Auto 1100 /uL (1100-4500); Lymphocytes Percent Auto 8.4 % (25-40); Mean Corpuscular HGB Conc 34.4 % (30-36); Mean Corpuscular Hemoglobin 32.8 PG (26-34); Mean Corpuscular Volume 95.4 fL (80-100); Monocytes Absolute Auto 800 /uL (0-900); Monocytes Percent Auto 6.3 % (3-14); Neutrophils Absolute Auto 11300 /uL (1500-7000); Neutrophils Percent Auto 85.2 % (50-75); Platelet Count 164 X10^3/uL (150-400); Red Cell Distribution Width 12.8 % (11.6-14.8); White Blood Cell Count 13.2 X10^3/uL (4.5-11.0)
[2022-12-06 05:26] LABS: BUN Creatinine Ratio 14.5 (6-22); Blood Urea Nitrogen 11 mg/dL (7-17); Calcium 8.6 mg/dL (8.4-10.2); Carbon Dioxide 28 mmol/L (22-32); Chloride 100 mmol/L (98-107); Cholesterol 148 mg/dL (140-199); Estimated Glomerular Filt Rate > 60 mL/min (>60); Glucose 124 mg/dL (80-110); HDL Cholesterol 36 mg/dL (40-60); HEMOLYSIS < 15 (0-50); LDL Cholesterol Calculated 80 mg/dL (<100); Potassium 3.1 mmol/L (3.4-5.1); Sodium 138 mmol/L (137-145); Triglycerides 158 mg/dL (35-150)
[2022-12-06 05:37] LABS: Hemoglobin A1C% w Est Avg Glu 5.5 % (4.0-6.0)
--- NOTE | 2022-12-06 06:48 | PC.NURSE ---
0648--nicardipine drip restarted last night and remains at 2.5mg/hr; any time pt takes PO, including sips of water, she get nauseated; she has received 2 doses of zofran this shift and has vomited x 1; neuro status has remained intact all shift
[2022-12-06] MEDS: ENOXAPARIN 40 MG/0.4 ML SYRINGE SUBCUT ×2 (08:12→20:19)
[2022-12-06] MEDS: ASPIRIN EC 81 MG TABLET PO (08:12)
[2022-12-06 09:56] LABS: Lipase 753 U/L (23-300)
--- NOTE | 2022-12-06 10:14 | DI.CT.S_ITS ---
PROCEDURE: CT ABDOMEN PELVIS W CON INDICATIONS: abdominal pain, fever TECHNIQUE: After the administration of oral and IV contrast, axial sections were acquired from the lung bases to the pubic symphysis. Coronal and sagittal reformats were performed. For radiation dose reduction, the following was used: automated exposure control, adjustment of mA and/or kV according to patient size. COMPARISON: None. FINDINGS: Image quality: Excellent. Lung bases: Unremarkable. Heart: No significant findings. ABDOMEN: Liver: There is a water density nonenhancing cyst along the posterior aspect of the right liver, as on series 2, image 12 measuring 3.5 cm. Additional smaller presumed cysts can be seen elsewhere within the liver. Diffuse fatty liver infiltration is noted. No suspicious liver lesion is identified. Gallbladder: The gallbladder is abnormal, with apparent gallstones and sludge. There is pericholecystic fluid seen. Biliary ducts: Unremarkable. Pancreas: Unremarkable. Spleen: Unremarkable. Incidental note is made of an accessory splenule along the hilum of the primary spleen. Adrenal Glands: Focal wall nodular appearing thickening can be seen involving the cecum and the ascending colon. There is fatty metaplasia is seen. There is potential involvement of the terminal ileum, yet this is not well seen. Minimal surrounding inflammatory change can be seen. A normal appendix is seen. Minimal distal colonic diverticulosis can be seen, without findings of active diverticulitis. The remainder of the colon is unremarkable, although it is decompressed. No additional small bowel abnormality is identified. The stomach is decompressed, which limits its evaluation. Kidneys and Ureters: There is an exophytic water density cyst along the lateral aspect of the right kidney, 9 mm. The kidneys demonstrate normal size and enhance symmetrically. There is no hydronephrosis. Stomach and Bowel: Stomach, small bowel loops, and colon are unremarkable. Peritoneum: No abnormal intraperitoneal fluid. No free air. Ventral Wall: A mild periumbilical hernia is seen, containing fat. Abdominal Nodes: No retroperitoneal or mesenteric adenopathy by size criteria. Vessels: Aorta and inferior vena cava are normal in size. PELVIS: Pelvic Organs: The uterus appears normal for age. No adnexal masses are seen. Bladder: Unremarkable. Pelvic Nodes: No enlarged lymph nodes. Miscellaneous: No inguinal hernias are seen. Bones: Focal L4-L5 and L5-S1 degenerative change can be seen. Milder degenerative changes are seen elsewhere. Mild levoconvex scoliotic curvature is noted. IMPRESSION: Abnormal gallbladder, with apparent gallstones and sludge with surrounding inflammatory fluid. If clinically appropriate, please consider a right upper quadrant ultrasound for further evaluation. Focal nodular wall thickening seen involving the sigmoid colon and the ascending colon, with fatty metaplasia. There is potential involvement of the terminal ileum as well, yet this is not well seen. Please consider Crohn's disease versus another type of infectious or inflammatory colitis. Normal appendix. Additional findings: Liver cysts, measuring up to 3.5 cm Fatty liver infiltration Accessory splenule Simple appearing right renal cyst Fat containing periumbilical hernia Minimal distal colonic diverticulosis, without active diverticulitis Focal lower lumbar spine degenerative change Levoconvex scoliotic curvature Dictated by: Saeed Waldron M.D. on 12/06/2022 at 9:58 Approved by: Saeed Waldron M.D. on 12/06/2022 at 10:04
--- NOTE | 2022-12-06 12:19 | CM.DANOTE ---
DCP: Case received, EMR reviewed and met with patient. Spouse, Spencer, was at bedside. Introduced self and role. Completed DCP assessment based upon information currently available. Patient is a 62 year old female who admitted yesterday afternoon to the care of the hospitalist team. PCP: Dr. Newsome. Payer: confirmed: [facility]. Patient came to the hospital via private vehicle secondary to nausea and vomiting, concern about some memory loss. Patient had also noted loose stools. Patent had also noted increased blood pressure, 228/115 in ER. Patient was admitted with hypertensive emergency with acute metabolic encephalopathy, aysymptomatic bacteuria, nausea/vomiting/diarrhea. Notes indicate that MRI was ordered. Briefly met with patient in her room, , Spencer was at bedside. Patient came back from MRI, had been vomiting earlier, laying on her side, resting. Confirmed that her and spouse reside here in [place]. At her baseline, she is independent, and is employed at [employer]. Notes also indicate that she does not have current PCP, had Dr. Ally Newsome listed as PCP. P: DCP to continue to follow. Patient should be able to go home when deemed medically stable, may need some resources for providers. Margie Ortega RN/Fabrication Welder Discharge Planning/Care Management CM Discharge Assessment Start: 12/06/22 12:16 Freq: Status: Active Protocol: Document 12/06/22 12:16 (Rec: 12/06/22 12:18 [id number]) Discharge Planning Assessment Assigned Applications Sales Consultant Margie Ortega RN/Fabrication Welder Advance Directives? No History Provided By Patient,Family Member,Medical Record Prior Living Arrangements House Household Members spouse Type of transporation used prior to Drives own vehicle admit Independent with ADL's Yes Is patient alert and oriented? Yes Caregiver for Another No Barriers to Discharge No Comment Supportive Spouse, Spencer, at bedside. Discharge Plan Home Transportation Arrangement Spouse Referrals Initiated None needed Whiteboard Updated in Patient Room with Yes name and ext. # of Applications Sales Consultant Review Status In Process Next Review Type Continued Stay Review
[2022-12-06] MEDS: PIPERACILLIN/TAZO 3.375 GM in SODIUM CHLORIDE 0.9% 100 ML IV (15:49)
--- NOTE | 2022-12-06 15:56 | P.PN_ITS ---
Subjective Subjective Date Patient Seen: 12/06/22 Interval history: 62 year old female admitted with hypertensive emergency yesterday. Quickly taken off of antihypertensive infusion, BP improved to normal without medications. BP up again today, but SBP <180. Continues to have nausea, diffuse abdominal pain that is mild. Lipase was elevated to 753, ordered for abdominal CT which showed gallstones with PCCF. Ultrasound ordered for further evaluation. Started on zosyn. Exam Vital Signs (past 8 hours): - 12/06/22 08:00 12/06/22 08:00 12/06/22 08:15 Temperature Pulse Rate 94 H 82 Respiratory Rate 24 18 Blood Pressure 121/67 Pulse Oximetry 97 94 Oxygen Delivery Method 12/06/22 08:33 12/06/22 08:45 12/06/22 09:00 Temperature Pulse Rate 86 77 75 Respiratory Rate 16 14 Blood Pressure Pulse Oximetry 95 97 97 Oxygen Delivery Method 12/06/22 09:15 12/06/22 09:30 12/06/22 09:45 Temperature Pulse Rate 75 75 73 Respiratory Rate 28 H 20 15 Blood Pressure Pulse Oximetry 97 98 84 L Oxygen Delivery Method 12/06/22 10:00 12/06/22 10:15 12/06/22 10:00 Temperature Pulse Rate 66 69 Respiratory Rate 18 15 Blood Pressure Pulse Oximetry 95 95 Oxygen Delivery Method Room Air 12/06/22 12:00 Temperature 100.4 F H Pulse Rate 92 H Respiratory Rate 15 Blood Pressure 170/50 H Pulse Oximetry 98 Oxygen Delivery Method Fraction of Inspired Oxygen 28 SaO2/FiO2 Ratio 357 Oxygen Delivery Method Room Air Oxygen Flow Rate 2 Narrative Exam Narrative: General:? Patient is well developed and well nourished, mildly ill appearing with emesis bag constantly nearby. HEENT:? Normocephalic, atraumatic, extraocular muscles intact, oral pharynx is clear and mucous membranes are moist. Neck: supple and symmetric, trachea is midline, no cervical adenopathy. Negative for JVD Lungs:? CTA b/l no wheezing rhonchi or rales. Cardio:?RRR no m/r/g. Abdomen: soft and non-distended, diffuse mild tenderness, more localized RLQ and RUQ. Musculoskeletal:? Muscle strength and tone are equal within normal limits, no deformity. Extremities: No edema or joint effusions. No cyanosis or clubbing. Neuro:? Alert and orientated x3,? sensation to touch intact in all extremities, no gross deficits noted of cranial nerves. Psych:? Patient has a well-kept appearance, appropriate affect, mental status attitude thought context and judgment are appropriate for age. Objective Labs 12/06/22 04:20 12/06/22 04:20 Labs: Laboratory Results - last 24 hr 12/05/22 12/05/22 12/05/22 13:11 15:33 17:30 WBC RBC Hgb Hct MCV MCH MCHC RDW Plt Count Neut % (Auto) Lymph % (Auto) [place] % (Auto) Eos % (Auto) Baso % (Auto) Neut # (Auto) Lymph # (Auto) [place] # (Auto) Eos # (Auto) Baso # (Auto) Sodium Potassium Chloride Carbon Dioxide BUN Creatinine Estimated GFR BUN/Creatinine Ratio Glucose Hemoglobin A1c Calcium Triglycerides Cholesterol LDL Cholesterol, Calc HDL Cholesterol Lipase TSH 1.12 Urine Color Yellow Urine Appearance Slightly cloudy Urine pH 7.5 Ur Specific [place] 1.015 Urine Protein 2+ H Urine Glucose (UA) Negative Urine Ketones 2+ H Urine Occult Blood Trace-intact Urine Nitrate Negative Urine Bilirubin Negative Urine Urobilinogen 0.2 Ur Leukocyte Esterase Negative Urine RBC 1-5/hpf Urine WBC 5-10/hpf H Ur Squamous Epith Cells 1-5 /hpf Ur Renal Epithelial Cell 1-5/hpf H Amorphous Sediment 1+ Urine Bacteria Few (2-10) H Ur Culture Indicated? Specimen cultured Nasal Screen MRSA (PCR) Negative for mrsa 12/06/22 12/06/22 12/06/22 04:20 04:20 04:20 WBC 13.2 H RBC 4.40 Hgb 14.4 Hct 42.0 MCV 95.4 MCH 32.8 MCHC 34.4 RDW 12.8 Plt Count 164 Neut % (Auto) 85.2 H Lymph % (Auto) 8.4 L [place] % (Auto) 6.3 Eos % (Auto) 0.0 L Baso % (Auto) 0.1 Neut # (Auto) 87319 H Lymph # (Auto) 1100 [place] # (Auto) 800 Eos # (Auto) 0 Baso # (Auto) 0 Sodium 138 Potassium 3.1 L Chloride 100 Carbon Dioxide 28 BUN 11 Creatinine 0.76 Estimated GFR > 60 BUN/Creatinine Ratio 14.5 Glucose 124 H Hemoglobin A1c 5.5 Calcium 8.6 Triglycerides 158 H Cholesterol 148 LDL Cholesterol, Calc 80 HDL Cholesterol 36 L Lipase TSH Urine Color Urine Appearance Urine pH Ur Specific [place] Urine Protein Urine Glucose (UA) Urine Ketones Urine Occult Blood Urine Nitrate Urine Bilirubin Urine Urobilinogen Ur Leukocyte Esterase Urine RBC Urine WBC Ur Squamous Epith Cells Ur Renal Epithelial Cell Amorphous Sediment Urine Bacteria Ur Culture Indicated? Nasal Screen MRSA (PCR) 12/06/22 04:20 WBC RBC Hgb Hct MCV MCH MCHC RDW Plt Count Neut % (Auto) Lymph % (Auto) [place] % (Auto) Eos % (Auto) Baso % (Auto) Neut # (Auto) Lymph # (Auto) [place] # (Auto) Eos # (Auto) Baso # (Auto) Sodium Potassium Chloride Carbon Dioxide BUN Creatinine Estimated GFR BUN/Creatinine Ratio Glucose Hemoglobin A1c Calcium Triglycerides Cholesterol LDL Cholesterol, Calc HDL Cholesterol Lipase 753 H TSH Urine Color Urine Appearance Urine pH Ur Specific [place] Urine Protein Urine Glucose (UA) Urine Ketones Urine Occult Blood Urine Nitrate Urine Bilirubin Urine Urobilinogen Ur Leukocyte Esterase Urine RBC Urine WBC Ur Squamous Epith Cells Ur Renal Epithelial Cell Amorphous Sediment Urine Bacteria Ur Culture Indicated? Nasal Screen MRSA (PCR) [facility] Medical History Chickenpox (1961) Chronic back pain (1986) Herpes (1985) Hypothyroidism (1971) Measles (1960) Mumps (1962) Pneumonia (2017) Surgical History Hx of dilation and curettage (1981) Hx of tonsillectomy (~1962) Family History Father Atrial fibrillation, chronic Macular degeneration Hypertension Hyperlipidemia Mother Cancer Brain tumor Grandfather No problems noted. Grandmother Cancer Grandfather No problems noted. Grandmother No problems noted. Brother Cancer Social History household members: spouse Smoking Status: Former smoker Tobacco: How many years used: 10 alcohol intake: current substance use type: does not use Assessment & Plan Assessment & Plan narrative: 1. Hypertensive emergency with acute metabolic / hypertensive encephalopathy - CT / CT angiogram head and neck initially unremarkable. - marked HTN with BP 228/115 in the ER. - nicardipine gtt with goal BP reduction around 20%. Goal SBP around 180. She was only on briefly before BP improved. - symptom control with zofran. - MRI brain negative for CVA. TTE ordered. - hold on oral medications, may be reactive to pain / nausea from GI symptoms (see below) 2. Asymptomatic bacteuria - follow up urine cultures, no indication for antibiotic treatment at this time but will be covered with zosyn as noted below. 3. nausea/vomiting/diarrhea, possible acute cholecystitis and colitis - with continued abdominal pain and nausea today, checked lipase elevated at 753, CT abdomen with possible cholecystitis, but also nonspecific ascending colonic wall thickening. - US RUQ ordered - possible surgery consultation - start zosyn. - if diarrhea again, check GI panel given colitis on CT. Differential includes infectious and non-infectious inflammatory etiologies, less likely malignancy. 4. Obesity. Code: Full, surrogate is patient's spouse DVT: Lovenox daily Dispo: admit ICU on nicardipine infusion I have utilized all available immediate resources to obtain, update, or review the patient's current medications. Additional history obtained via patient's spouse: discussed care with ER provider as well as tele-helpdesk administrator service. I spent 35 minutes providing critical care management this patient. This excludes time spent in performing separately billed procedures. COVID-19 COVID-19 status: Negative Time Spent With Patient Critical Care time: I spent a total of [] minutes of critical care time on this patient's care today; this time is exclusive of procedural time. Quality VTE Deep Vein Thrombosis/Pulmonary Embolism Present on Admission: No
--- NOTE | 2022-12-06 18:48 | DI.ECHO.S_ITS ---
[facility] +---------+ : : [address] [place] : : : : [id number] : : : : Phone: [phone]+ Echocardiogram Report + + :Name: SHAMEKA GUERRA Study Date: 12/06/2022 Height: 64 in : :[facility] ReadingLocation: Weight: 240 lb : : Gender: Female BSA: 2.1 m2 : :: 1960 Age: 62 yrs BP: 170/84 mmHg: :Reason For Study: MARKED HYPERTENSION : : Performed By: Marcie Gipson : :Referring: WILFRIDO REBOLLAR : + + Interpretation Summary 1) Normal left ventricular size, wall motion, and systolic function (EF 60- 65%). 2) Grossly, normal right ventricular size and function. 3) No significant valvular abnormalities. 4) The ascending aorta is mildly enlarged at 3.5cm. 5) No prior Echo available for comparison. Procedure: A two-dimensional transthoracic echocardiogram with color flow and Doppler was performed. There is no prior echocardiogram noted for this patient. A contrast injection of Definity was performed to improve assessment of LV function. The patient was in normal sinus rhythm during the exam. Left Ventricle: The left ventricle is normal in size. Left ventricular wall thickness is at the upper limits of normal. The ejection fraction is estimated to be 60-65%. There are no focal wall motion abnormalities. Diastolic function could not be accurately assessed due to unobtainable data. Right Ventricle: The right ventricle grossly appears normal in size with probable normal systolic function. Atria: The left atrium is not well visualized. Right atrium not well visualized. Mitral Valve: The mitral valve is grossly normal. There is no mitral regurgitation noted. Aortic Valve: The aortic valve is grossly normal. There is no aortic valve stenosis. There is trace aortic regurgitation. Tricuspid Valve: The tricuspid valve is not well visualized. Pulmonary artery pressures cannot be estimated because of the lack of a measurable TR jet velocity. No tricuspid regurgitation. Pulmonic Valve: The pulmonic valve is not well seen, but is grossly normal. Great Vessels: The aortic root is normal size. The ascending aorta is mildly enlarged. The inferior vena cava was not visualized. Pericardium/ Pleura There is no pericardial effusion. MMode/2D Measurements & Calculations LVIDd: 5.2 cm LVOT diam: 2.1 cm LVIDs: 3.5 cm Ao root diam: 3.1 cm FS: 33.0 % asc Aorta Diam: 3.5 cm EPSS: 0.45 cm IVSd: 1.2 cm LVPWd: 0.90 cm LV mae. diameter/BSA (cm/m^2): 2.4 LV sys. diameter/BSA (cm/m^2): 1.6 TAPSE: 2.1 cm Doppler Measurements & Calculations Ao V2 max: 156.7 cm/sec LVOT Max Harjinder: 122.7 cm/sec Ao V2 mean: 102.5 cm/sec LV V1 max P.0 mmHg Ao max P.8 mmHg LV V1 VTI: 25.7 cm Ao mean P.7 mmHg DANIELLE(I,D): 2.8 cm2 Ao V2 VTI: 30.4 cm DANIELLE(V,D): 2.6 cm2 sev ratio: 0.84 DANIELLE indexed to BSA (cm^2/m^2): 1.3 AI P1/2t: 660.8 msec AI dec slope: 209.4 cm/sec2 MV E max harjinder: 65.9 cm/sec PA V2 max: 74.8 cm/sec MV A max harjinder: 70.8 cm/sec PA V2 mean: 47.1 cm/sec MV E/A: 0.93 PA mean P.0 mmHg Med Peak E' Harjinder: 7.7 cm/sec PA pr(Accel): 31.9 mmHg E/E' med: 8.5 Lat Peak E' Harjinder: 4.0 cm/sec E/E' lat: 16.4 E/e' average: 12.5 MV dec time: 0.15 sec SV(LVOT): 86.4 ml Reading Physician:04:45 PM
[2022-12-07] VITALS (27 sets, daily range): BP systolic 160–202; BP diastolic 71–104; PULSE 67–92; RESP 18–20; TEMP 36.6–37.8; O2SAT 16–97
[2022-12-07] MEDS: LORazepam 2 MG/ML INJ 0.5 MG IV ×2 (00:21→08:49)
[2022-12-07] MEDS: PIPERACILLIN/TAZO 3.375 GM in SODIUM CHLORIDE 0.9% 100 ML IV ×4 (00:22→23:46)
[2022-12-07] MEDS: ONDANSETRON 4 MG/2 ML INJ IV (03:31)
[2022-12-07] MEDS: LABETALOL 20 MG/4 ML SYRINGE 10 MG IV (04:49)
[2022-12-07 04:56] LABS: Add Manual Diff / Slide Review NO; Basophils Absolute Auto 0 /uL (0-100); Basophils Percent Auto 0.1 % (0-2); Eosinophils Absolute Auto 0 /uL (0-450); Eosinophils Percent Auto 0.1 % (2-4); Hematocrit 42.7 % (36-46); Hemoglobin 14.9 g/dL (12.0-16.0); Lymphocytes Absolute Auto 1300 /uL (1100-4500); Lymphocytes Percent Auto 10.7 % (25-40); Mean Corpuscular HGB Conc 34.9 % (30-36); Mean Corpuscular Volume 94.6 fL (80-100); Monocytes Absolute Auto 900 /uL (0-900); Monocytes Percent Auto 7.5 % (3-14); Neutrophils Absolute Auto 9600 /uL (1500-7000); Neutrophils Percent Auto 81.6 % (50-75); Platelet Count 167 X10^3/uL (150-400); Red Blood Cell Count 4.52 X10^6/uL (4.0-5.2); Red Cell Distribution Width 12.6 % (11.6-14.8); White Blood Cell Count 11.8 X10^3/uL (4.5-11.0)
[2022-12-07 05:07] LABS: BUN Creatinine Ratio 20.5 (6-22); Blood Urea Nitrogen 16 mg/dL (7-17); Calcium 8.7 mg/dL (8.4-10.2); Carbon Dioxide 29 mmol/L (22-32); Chloride 99 mmol/L (98-107); Estimated Glomerular Filt Rate > 60 mL/min (>60); Glucose 117 mg/dL (80-110); HEMOLYSIS < 15 (0-50); Potassium 2.8 mmol/L (3.4-5.1); Sodium 136 mmol/L (137-145)
[2022-12-07] MEDS: ACETAMINOPHEN 325 MG TABLET 650 MG PO (05:33)
[2022-12-07] MEDS: POTASSIUM CHLORIDE IN WATER 10 MEQ/100 ML PIGGYBACK 100 MEQ IV (05:48)
[2022-12-07] MEDS: POTASSIUM CHLORIDE 20 MEQ TAB 60 MEQ PO (06:44)
[2022-12-07] MEDS: ENOXAPARIN 40 MG/0.4 ML SYRINGE SUBCUT (08:47)
[2022-12-07] MEDS: ASPIRIN EC 81 MG TABLET PO (08:47)
--- NOTE | 2022-12-07 11:00 | DI.US.S_ITS ---
PROCEDURE: US ABDOMEN LIMITED INDICATIONS: CHOLECYSTITIS TECHNIQUE: Real-time scanning was performed of the abdominal and retroperitoneal organs, with image documentation. COMPARISON: None. FINDINGS: Liver: Liver is normal in size and show increased liver parenchymal echotexture, no discrete hepatic lesion. Gallbladder: Sludge material is noted within gallbladder lumen dependent portion with at least 2 mobile stones seen measures up to 1.2 cm in size. Gallbladder wall thickening, trace amount of pericholecystic fluid is seen. Positive sonographic Tejeda sign is also noted. Biliary ducts: Intrahepatic bile ducts are non-dilated. Extrahepatic bile duct caliber measures 7.6 mm. Normal is 6-7 mm or less in diameter, or 10 mm or less post-cholecystectomy. Pancreas: Visualized portions of the pancreas are sonographically normal. IMPRESSION: 1. Cholelithiasis with sonographic evidence suggestive of acute cholecystitis. 2. Borderline prominent common bile duct. No definite choledocholithiasis. 3. Hepatic steatosis. Dictated by: Alexis Roldan M.D. on 12/07/2022 at 11:41 Approved by: Alexis Roldan M.D. on 12/07/2022 at 11:43
--- NOTE | 2022-12-07 12:19 | PM.PN.1 ---
Subjective Subjective Date Patient Seen: 12/07/22 Interval history: 62 year old female admitted with hypertensive emergency but now with apparent cholecystitis. Ultrasound today shows GBWT, PCCF and positive narvaez sign. Pending surgery consultation. Overnight hypertensive, improved with IV labetalol. Continues to have abdominal pain and nausea this morning. Exam Vital Signs (past 8 hours): - 12/07/22 04:47 12/07/22 04:49 12/07/22 05:43 Temperature Pulse Rate 86 80 Respiratory Rate Blood Pressure 181/81 H 181/81 H 181/75 H Pulse Oximetry Oxygen Flow Rate 12/07/22 06:56 12/07/22 08:00 12/07/22 08:45 Temperature 100.0 F H 98.7 F Pulse Rate 71 73 Respiratory Rate 19 Blood Pressure 173/83 H 160/95 H 177/85 H Pulse Oximetry 16 L 97 Oxygen Flow Rate 0 Fraction of Inspired Oxygen 28 SaO2/FiO2 Ratio 357 Oxygen Delivery Method Room Air Oxygen Flow Rate 0 Narrative Exam Narrative: General:? Patient is well developed and well nourished, mildly ill appearing, lights are off. HEENT:? Normocephalic, atraumatic, extraocular muscles intact, oral pharynx is clear and mucous membranes are moist. Neck: supple and symmetric, trachea is midline, no cervical adenopathy. Negative for JVD Lungs:? CTA b/l no wheezing rhonchi or rales. Cardio:?RRR no m/r/g. Abdomen: soft and non-distended, diffuse mild tenderness, more localized to RUQ today with + narvaez sign Musculoskeletal:? Muscle strength and tone are equal within normal limits, no deformity. Extremities: No edema or joint effusions. No cyanosis or clubbing. Neuro:? Alert and orientated x3,? sensation to touch intact in all extremities, no gross deficits noted of cranial nerves. Psych:? Patient has a well-kept appearance, appropriate affect, mental status attitude thought context and judgment are appropriate for age. Objective Labs 12/07/22 04:20 12/07/22 04:20 Labs: Laboratory Results - last 24 hr 12/07/22 12/07/22 04:20 04:20 WBC 11.8 H RBC 4.52 Hgb 14.9 Hct 42.7 MCV 94.6 MCH 33.0 MCHC 34.9 RDW 12.6 Plt Count 167 Neut % (Auto) 81.6 H Lymph % (Auto) 10.7 L [place] % (Auto) 7.5 Eos % (Auto) 0.1 L Baso % (Auto) 0.1 Neut # (Auto) 9600 H Lymph # (Auto) 1300 [place] # (Auto) 900 Eos # (Auto) 0 Baso # (Auto) 0 Sodium 136 L Potassium 2.8 L Chloride 99 Carbon Dioxide 29 BUN 16 Creatinine 0.78 Estimated GFR > 60 BUN/Creatinine Ratio 20.5 Glucose 117 H Calcium 8.7 PFSH Medical History Chickenpox (1961) Chronic back pain (1986) Herpes (1985) Hypothyroidism (1971) Measles (1960) Mumps (1962) Pneumonia (2016) Surgical History Hx of dilation and curettage (1981) Hx of tonsillectomy (~1962) Family History Father Atrial fibrillation, chronic Macular degeneration Hypertension Hyperlipidemia Mother Cancer Brain tumor Grandfather No problems noted. Grandmother Cancer Grandfather No problems noted. Grandmother No problems noted. Brother Cancer Social History household members: spouse Smoking Status: Former smoker Tobacco: How many years used: 10 alcohol intake: current substance use type: does not use Assessment & Plan Assessment & Plan narrative: 1. Hypertensive emergency with acute metabolic / hypertensive encephalopathy - CT / CT angiogram head and neck initially unremarkable. - marked HTN with BP 228/115 in the ER. - nicardipine gtt with goal BP reduction around 20%. Goal SBP around 180. She was only on briefly before BP improved. - symptom control with zofran. - MRI brain negative for CVA. TTE ordered. - hold on oral medications, may be reactive to pain / nausea from GI symptoms (see below) 2. Asymptomatic bacteuria - follow up urine cultures, no indication for antibiotic treatment at this time but will be covered with zosyn as noted below. 3. nausea/vomiting/diarrhea, acute cholecystitis and colitis - with continued abdominal pain and nausea today, checked lipase elevated at 753, CT abdomen with possible cholecystitis, but also nonspecific ascending colonic wall thickening. Differential does include passed stone given dilatation noted on ultrasound today. - US with wall thickening, pericholecystic fluid and narvaez sign. - Pending formal surgery consultation - continue zosyn today. - if diarrhea again, check GI panel given colitis on CT. Differential includes infectious and non-infectious inflammatory etiologies, less likely malignancy. 4. Obesity. - patient's obesity places her at increased morbidity and mortality risk from possible surgical procedures, contributes to her hypertension, and increases medical complexity. - prescription clerk lenses consultation after treatment of cholecystitis. Code: Full, surrogate is patient's spouse DVT: Lovenox daily Dispo: admit ICU on nicardipine infusion I have utilized all available immediate resources to obtain, update, or review the patient's current medications. Additional history obtained via patient's spouse: discussed care with ER provider as well as tele-vegetable canner service. I spent 35 minutes providing critical care management this patient. This excludes time spent in performing separately billed procedures. COVID-19 COVID-19 status: Negative Time Spent With Patient Critical Care time: I spent a total of [] minutes of critical care time on this patient's care today; this time is exclusive of procedural time. Quality VTE Deep Vein Thrombosis/Pulmonary Embolism Present on Admission: No MIPS - Admit I confirm the patient?s Advance Care Plan is present, Code status is documented, Surrogate decision maker is in patient?s record [If Yes, STOP here]: Yes
--- NOTE | 2022-12-07 13:46 | PM.CALLCOV.1 ---
Call Coverage Note Note Date of Patient Contact: 12/07/22 Narrative of Care Provided: Acute cholecystitis, possible pancreatitis. repeat labs pending. NPO after midnight for lap corwin tomorrow.
[2022-12-07 14:50] LABS: Alanine Aminotransferase 25 IU/L (<35); Albumin Globulin Ratio 1.4 (1.0-2.8); Alkaline Phosphatase 73 U/L (38-126); Aspartate Aminotransferase 27 IU/L (14-36); Blood Urea Nitrogen 16 mg/dL (7-17); Calcium 8.6 mg/dL (8.4-10.2); Carbon Dioxide 30 mmol/L (22-32); Chloride 100 mmol/L (98-107); Estimated Glomerular Filt Rate > 60 mL/min (>60); Globulin 2.8 g/dL (1.7-4.1); Glucose 104 mg/dL (80-110); HEMOLYSIS 15 (0-50); Lipase 416 U/L (23-300); Potassium 3.7 mmol/L (3.4-5.1); Sodium 137 mmol/L (137-145); Total Protein 6.8 g/dL (6.3-8.2)
[2022-12-07] MEDS: HYDROMORPHONE 1 MG INJ IV ×3 (16:32→23:54)
[2022-12-08] VITALS (19 sets, daily range): BP systolic 144–198; BP diastolic 67–98; PULSE 65–79; RESP 12–21; TEMP 36.1–37.6; O2SAT 92–99; BMI 40.8
--- NOTE | 2022-12-08 | PATH_ITS ---
[facility] Accession Number: [id number] No. of containers..01 Tissue . 01 Material submitted: . gallbladder - GALLBLADDER . 01 Diagnosis: Gallbladder, Cholecystectomy: Cholelithiasis and changes consistent with chronic cholecystitis. Negative for dysplasia and neoplasia. MRV 12/16/2022 1758 Local . 01 Electronically signed: . Linh Can MD, Pathologist NPI- [id number] . 01 Gross description: . The specimen is received in formalin labeled with the patient's name, , and gallbladder, and consists of an intact gallbladder measuring 7.1 x 3.5 x 3.3 cm. The serosa is green to yellow and smooth, while the hepatic surface is rough and unremarkable. The cystic duct is received closed with a clamp, is inked blue, and no pericystic lymph node is identified. The lumen is filled with dark green mucoid bile and multiple yellow bosselated calculi measuring up to 1.6 cm in greatest dimension grossly obstructing the cystic duct. The mucosa is dark green and velvety with nearest pinpoint yellow areas of discoloration consistent with cholesterol. No polyps or lesions are identified. The chen average 0.4 cm thick. Metal Fabricating Supervisor sections to include the cystic duct margin and full-thickness sections are submitted in cassette A1. Additional sections are submitted in cassette A2. ([id number]) ([id number]) /MRV 12/15/2022 1041 Local . 01 Pathologist provided ICD-10: K81.1 . 01 CPT . 504186 Specimen Comment: A courtesy copy of this report has been sent to [phone], [phone] Specimen Comment: 2042 Performed at: 01 [facility] [address] [address] [facility], [place], [place] [id number] MD Carlo Harding MD Phone: [phone]
[2022-12-08 04:22] LABS: Add Manual Diff / Slide Review NO; Basophils Absolute Auto 100 /uL (0-100); Basophils Percent Auto 0.7 % (0-2); Eosinophils Absolute Auto 100 /uL (0-450); Eosinophils Percent Auto 0.7 % (2-4); Hematocrit 42.9 % (36-46); Hemoglobin 14.7 g/dL (12.0-16.0); Lymphocytes Absolute Auto 2100 /uL (1100-4500); Lymphocytes Percent Auto 18.9 % (25-40); Mean Corpuscular HGB Conc 34.4 % (30-36); Monocytes Absolute Auto 700 /uL (0-900); Monocytes Percent Auto 6.6 % (3-14); Neutrophils Absolute Auto 8000 /uL (1500-7000); Neutrophils Percent Auto 73.1 % (50-75); Platelet Count 168 X10^3/uL (150-400); Red Blood Cell Count 4.47 X10^6/uL (4.0-5.2); Red Cell Distribution Width 12.6 % (11.6-14.8)
[2022-12-08 04:30] LABS: BUN Creatinine Ratio 18.8 (6-22); Blood Urea Nitrogen 18 mg/dL (7-17); Calcium 8.5 mg/dL (8.4-10.2); Carbon Dioxide 32 mmol/L (22-32); Chloride 97 mmol/L (98-107); Estimated Glomerular Filt Rate > 60 mL/min (>60); Glucose 106 mg/dL (80-110); HEMOLYSIS < 15 (0-50); Potassium 3.5 mmol/L (3.4-5.1); Sodium 135 mmol/L (137-145)
[2022-12-08] MEDS: PIPERACILLIN/TAZO 3.375 GM in SODIUM CHLORIDE 0.9% 100 ML IV ×2 (07:58→16:02)
[2022-12-08] MEDS: LACTATED RINGERS 1,000 ML 84 ML IV ×2 (10:55→12:59)
--- NOTE | 2022-12-08 11:00 | P.PN_ITS ---
Subjective Subjective Date Patient Seen: 12/08/22 Interval history: 62 year old female admitted with hypertensive emergency but now found to have acute cholecystitis. Pending cholecystectomy today with surgery. Her pain is a bit improved today. Exam Vital Signs (past 8 hours): - 12/08/22 04:00 12/08/22 08:09 12/08/22 08:00 Temperature 98.3 F 98.2 F Pulse Rate 71 71 Respiratory Rate 19 19 Blood Pressure 144/67 H 148/81 H Pulse Oximetry 97 97 Oxygen Delivery Method Room Air Oxygen Flow Rate 0 12/08/22 10:47 Temperature 98.6 F Pulse Rate 69 Respiratory Rate 18 Blood Pressure 151/80 H Pulse Oximetry 98 Oxygen Delivery Method Room Air Oxygen Flow Rate Fraction of Inspired Oxygen 28 SaO2/FiO2 Ratio 357 Oxygen Delivery Method Room Air Oxygen Flow Rate 0 Narrative Exam Narrative: General:? Patient is well developed and well nourished, no acute distress. HEENT:? Normocephalic, atraumatic, extraocular muscles intact, oral pharynx is clear and mucous membranes are moist. Neck: supple and symmetric, trachea is midline, no cervical adenopathy. Negative for JVD Lungs:? CTA b/l no wheezing rhonchi or rales. Cardio:?RRR no m/r/g. Abdomen: soft and non-distended, diffuse mild tenderness, improved today Musculoskeletal:? Muscle strength and tone are equal within normal limits, no deformity. Extremities: No edema or joint effusions. No cyanosis or clubbing. Neuro:? Alert and orientated x3,? sensation to touch intact in all extremities, no gross deficits noted of cranial nerves. Psych:? Patient has a well-kept appearance, appropriate affect, mental status attitude thought context and judgment are appropriate for age. Objective Labs 12/08/22 04:08 12/08/22 04:08 Labs: Laboratory Results - last 24 hr 12/07/22 12/08/22 12/08/22 14:20 04:08 04:08 WBC 11.0 RBC 4.47 Hgb 14.7 Hct 42.9 MCV 96.0 MCH 33.0 MCHC 34.4 RDW 12.6 Plt Count 168 Neut % (Auto) 73.1 Lymph % (Auto) 18.9 L [place] % (Auto) 6.6 Eos % (Auto) 0.7 L Baso % (Auto) 0.7 Neut # (Auto) 8000 H Lymph # (Auto) 2100 [place] # (Auto) 700 Eos # (Auto) 100 Baso # (Auto) 100 Sodium 137 135 L Potassium 3.7 3.5 Chloride 100 97 L Carbon Dioxide 30 32 BUN 16 18 H Creatinine 0.84 0.96 Estimated GFR > 60 > 60 BUN/Creatinine Ratio 19.0 18.8 Glucose 104 106 Calcium 8.6 8.5 Total Bilirubin 1.0 AST 27 ALT 25 Alkaline Phosphatase 73 Total Protein 6.8 Albumin 4.0 Globulin 2.8 Albumin/Globulin Ratio 1.4 Lipase 416 H [facility] Medical History Chickenpox (1961) Chronic back pain (1986) Herpes (1985) Hypothyroidism (1971) Measles (1960) Mumps (1962) Pneumonia (2016) Surgical History Hx of dilation and curettage (1981) Hx of tonsillectomy (~1962) Family History Father Atrial fibrillation, chronic Macular degeneration Hypertension Hyperlipidemia Mother Cancer Brain tumor Grandfather No problems noted. Grandmother Cancer Grandfather No problems noted. Grandmother No problems noted. Brother Cancer Social History household members: spouse Smoking Status: Former smoker Tobacco: How many years used: 10 alcohol intake: current substance use type: does not use Assessment & Plan Assessment & Plan narrative: 1. Hypertensive emergency with acute metabolic / hypertensive encephalopathy - CT / CT angiogram head and neck initially unremarkable. - marked HTN with BP 228/115 in the ER. - nicardipine gtt with goal BP reduction around 20%. Goal SBP around 180. She was only on briefly before BP improved. - symptom control with zofran and pain medications. - MRI brain negative for CVA. TTE unremarkable. - hold on oral medications for now, may be reactive to pain / nausea from acute cholcystitis 2. Asymptomatic bacteuria - follow up urine cultures, no indication for antibiotic treatment at this time but will be covered with zosyn as noted below. 3. nausea/vomiting/diarrhea, acute cholecystitis and colitis - with continued abdominal pain and nausea, checked lipase elevated at 753, CT abdomen with possible cholecystitis, but also nonspecific ascending colonic wall thickening. Differential does include passed stone given dilatation noted on ultrasound today. - US with wall thickening, pericholecystic fluid and narvaez sign. - Plan for cholecystectomy today. Discussed with general surgeon. - continue zosyn today, can likely discontinue after OR. Has had improvement in leukocytosis and pain since starting. - if diarrhea again, check GI panel given colitis on CT. Differential includes infectious and non-infectious inflammatory etiologies, less likely malignancy. 4. Obesity. - patient's obesity places her at increased morbidity and mortality risk from possible surgical procedures, contributes to her hypertension, and increases medical complexity. - lump maker consultation after treatment of cholecystitis. Code: Full, surrogate is patient's spouse DVT: Lovenox daily, hold prior to OR today Dispo: inpatient, probable discharge home tomorrow if no complications after cholecystectomy. I have utilized all available immediate resources to obtain, update, or review the patient's current medications. COVID-19 COVID-19 status: Negative Time Spent With Patient Critical Care time: I spent a total of [] minutes of critical care time on this patient's care today; this time is exclusive of procedural time. Quality VTE Deep Vein Thrombosis/Pulmonary Embolism Present on Admission: No
--- NOTE | 2022-12-08 11:41 | PM.HP.1 ---
History of Present Illness History of Present Illness Date Patient Seen: 12/08/22 Time Patient Seen: 11:41 Chief complaint: throwing up as of last night, memory is lost Narrative: Possible recurrent biliary colic. Now with acute cholecystitis as comfirmed on CT and US. Normal LFTs, slightly elevated lipase. RUQ tenderness, nausea and dyspepsia. Patient History Medical History Chickenpox (1961) Chronic back pain (1986) Herpes (1985) Hypothyroidism (1971) Measles (1960) Mumps (1962) Pneumonia (2016) Surgical History Hx of dilation and curettage (1981) Hx of tonsillectomy (~1962) Family & Social History Family History Father Atrial fibrillation, chronic Macular degeneration Hypertension Hyperlipidemia Mother Cancer Brain tumor Grandfather No problems noted. Grandmother Cancer Grandfather No problems noted. Grandmother No problems noted. Brother Cancer Social History: household members spouse Prior Living Arrangements House Safety & Behavioral: Feels Safe in Current Yes Environment Been Physically Hurt or No Threatened By a Person Tobacco & Substance use: Tobacco type cannabis/marijuana Smoking Status Former smoker alcohol intake current alcohol intake frequency a few times a week Substance Use Type marijuana Meds Home Medications and Allergies Home Medications Medication Instructions Recorded Confirmed Type cetirizine 10 mg capsule (Zyrtec) 10 mg PO DAILY 03/19/18 10/11/19 History triamcinolone acetonide 55 mcg 1 spray intranasal DAILY 03/19/18 10/11/19 History nasal spray aerosol (Nasacort) acetaminophen 325 mg capsule 650 mg PO ONCE #2 caps 01/27/19 10/11/19 Rx adjuvant AS01B (PF)vial 1 of 2 0.5 ml IM ONCE #0.5 mL 05/13/19 10/11/19 Rx (Shingrix Adjuvant Component (PF) intramuscular suspension) cyclobenzaprine 10 mg tablet 10 mg PO ONCE PRN muscle spasm #30 08/16/19 10/11/19 Rx tabs Allergies Allergy/AdvReac Type Severity Reaction Status Date / Time house dust Allergy Mild Verified 12/05/22 14:01 perfume Allergy Mild Verified 12/05/22 14:01 tree and shrub pollen Allergy Mild Post nasal Verified 12/05/22 14:01 drip Review of Systems Review of Systems ROS: Yes All systems reviewed with the patient and are negative except as otherwise documented Exam Vital Signs (past 8 hours): - 12/08/22 04:00 12/08/22 08:09 12/08/22 08:00 Temperature 98.3 F 98.2 F Pulse Rate 71 71 Respiratory Rate 19 19 Blood Pressure 144/67 H 148/81 H Pulse Oximetry 97 97 Oxygen Delivery Method Room Air Oxygen Flow Rate 0 12/08/22 10:47 Temperature 98.6 F Pulse Rate 69 Respiratory Rate 18 Blood Pressure 151/80 H Pulse Oximetry 98 Oxygen Delivery Method Room Air Oxygen Flow Rate Fraction of Inspired Oxygen 28 SaO2/FiO2 Ratio 357 Oxygen Delivery Method Room Air Oxygen Flow Rate 0 Const General: cooperative and comfortable Nutritional Appearance: overweight HENMT Head: normocephalic and atraumatic Eyes General: appearance normal, both eyes and all related structures Sclera: sclerae normal Neck Neck: trachea midline Chest Chest: normal inspection of the chest Resp Effort & Inspection: normal respiratory effort and able to speak in complete sentences Cardio Rate: regular rate GI Palpation: soft and tender (RUQ) Skin General: turgor normal Neuro General: patient alert, patient awake and patient oriented x3 Psych Appearance: grossly normal Judgment: judgment good Objective Labs 12/08/22 04:08 12/08/22 04:08 Labs: Laboratory Results - last 24 hr 12/07/22 12/08/22 12/08/22 14:20 04:08 04:08 WBC 11.0 RBC 4.47 Hgb 14.7 Hct 42.9 MCV 96.0 MCH 33.0 MCHC 34.4 RDW 12.6 Plt Count 168 Neut % (Auto) 73.1 Lymph % (Auto) 18.9 L [place] % (Auto) 6.6 Eos % (Auto) 0.7 L Baso % (Auto) 0.7 Neut # (Auto) 8000 H Lymph # (Auto) 2100 [place] # (Auto) 700 Eos # (Auto) 100 Baso # (Auto) 100 Sodium 137 135 L Potassium 3.7 3.5 Chloride 100 97 L Carbon Dioxide 30 32 BUN 16 18 H Creatinine 0.84 0.96 Estimated GFR > 60 > 60 BUN/Creatinine Ratio 19.0 18.8 Glucose 104 106 Calcium 8.6 8.5 Total Bilirubin 1.0 AST 27 ALT 25 Alkaline Phosphatase 73 Total Protein 6.8 Albumin 4.0 Globulin 2.8 Albumin/Globulin Ratio 1.4 Lipase 416 H Assessment & Plan Assessment & Plan narrative: Acute cholecystitis slight elevated lipase w/o biliary obstruction or pancreatitis(none on CT) obesity w BMI 40.9 Plan: lap corwin. COVID-19 COVID-19 status: Negative Time Spent With Patient Time with patient: 30 to 49 minutes with 50% spent counseling/coordinating care Critical Care time: I spent a total of [] minutes of critical care time on this patient's care today; this time is exclusive of procedural time. Quality VTE Deep Vein Thrombosis/Pulmonary Embolism Present on Admission: No
--- NOTE | 2022-12-08 12:40 | SUR.OPER ---
Supine on padded OR bed, head on pillow, arms secured on padded arm boards at <90 degrees abduction, legs uncrossed, safety belt at thigh, tape over blanket over lower legs.
[2022-12-08] MEDS: BUPIVACAINE 0.5% W/ EPI (PF) 30 ML VIAL INJ (13:10)
--- NOTE | 2022-12-08 13:20 | PM.OP.1 ---
Operative Date/Time/Diagnoses Date of procedure: 12/08/22 Time of procedure: 13:20 Pre-op diagnosis: Acute cholecystitis Post-op diagnosis: same Procedure & Clinicians Procedure: Laparoscopic cholecystectomy Same procedure as scheduled: Yes Indications: Acute cholecystitis Surgeon: Linh Roberts Click Yes if Unassisted: Yes Anesthesia Type: General Operative Notes Findings: Acute cholecystitis Closure Type: primary Specimen(s): other (Gallbladder) Estimated Blood Loss (mL): 20 Blood products transfused: none Procedure in detail: Preop diagnosis: Acute cholecystitis Postop diagnosis: Same Operative procedure: Laparoscopic cholecystectomy Surgeon: Nae Roberts MD Anesthetic: General with ET tube intubation along with local Findings: Acute cholecystitis Procedure: Patient placed in a supine position. Prepped and draped sterile fashion to expose her abdomen. Infraumbilical port site was placed using open technique a 12 mm port. Insufflation began all other ports were placed under direct vision including a 10 mm port in the midepigastrium and 2 5 mm ports in the right lateral abdomen. Gallbladder was grasped pushed cephalad for exposure. Cystic duct was identified, clipped once distally twice proximally transected. Cystic artery was identified clipped once distally once proximally and transected. Gallbladder was removed from the fossa bed with electrocautery. The area was irrigated and suctioned to a clear return. There was no ongoing bleeding. Gallbladder was placed into an Endo-Catch bag and pulled through the umbilical port site intact. Spillage of bile that was addressed with the irrigation. Small stones were retrieved. Ports removed and closure began. Closure consisted of interrupted 0 Vicryl for fascial closure the infraumbilical port site. Skin was closed a running 4-0 Vicryl. Steri-Strips and sterile dressings were placed. Patient was awakened, extubated, taken to recovery room in stable condition. Needle, instrument, sponge counts were correct. Blood loss: 20 mL Specimen: Gallbladder Complications: none Post-operative Condition: stable Disposition: PACU
[2022-12-08] MEDS: LACTATED RINGERS 1,000 ML 120 ML IV (13:51)
--- NOTE | 2022-12-08 13:56 | PC.NURSE ---
Addendum entered by Mary Ellen Valencia R.N. 12/08/22 17:20: pt had pain and nausea, gave oyxodone and zofran but was ineffective. gave dilaudid and ativan instead. Original Note: pt just arrived in AC unit. Hypertensive, will continue to monitor. btx4 hypo.
[2022-12-08] MEDS: OXYCODONE IR 5 MG TABLET PO (14:10)
[2022-12-08] MEDS: POTASSIUM CHLORIDE 20 MEQ TAB 40 MEQ PO (16:02)
[2022-12-08] MEDS: ONDANSETRON 4 MG/2 ML INJ IV (16:25)
[2022-12-08] MEDS: HYDROMORPHONE 1 MG INJ IV (16:57)
[2022-12-08] MEDS: LORazepam 2 MG/ML INJ 0.5 MG IV (17:00)
[2022-12-08] MEDS: LOSARTAN 25 MG TABLET PO (19:51)
[2022-12-09] VITALS: BP 178/92; PULSE 88; RESP 17; TEMP 37.3; O2SAT 97
[2022-12-09] MEDS: PIPERACILLIN/TAZO 3.375 GM in SODIUM CHLORIDE 0.9% 100 ML IV ×2 (00:59→08:13)
[2022-12-09 04:00] VITALS: BP 162/82; PULSE 83; RESP 18; TEMP 37.6; O2SAT 93
[2022-12-09] MEDS: HYDROMORPHONE 1 MG INJ IV (04:14)
[2022-12-09] MEDS: LACTATED RINGERS 1,000 ML 120 ML IV (06:59)
[2022-12-09] MEDS: ASPIRIN EC 81 MG TABLET PO (08:13)
[2022-12-09 08:34] VITALS: BP 129/66; PULSE 75; RESP 17; TEMP 36.6; O2SAT 99
--- NOTE | 2022-12-09 09:30 | PM.DS.1 ---
History of Present Illness History of Present Illness Date Patient Seen: 12/09/22 Time Patient Seen: 18:15 Chief complaint: throwing up as of last night, memory is lost Narrative: This is a 62 year old female with only reported history of allergies who presented to the emergency room over concerns about short term memory. Per her , she started having nausea, vomiting and diarrhea last night after dinner. She took a nap this morning, but when she awoke she was confused with difficulty particularly with short term memory. She is able to tell her history, but is not so clear about today's events. states he would have to repeat things for her every couple of minutes. Her buttermaker continuous churn memory and recall of her medical history appears intact. She denies chest pain, shortness of breath, orthopnea, + snoring but no apnea per spouse, LE edema, papitations, numbness, tingling, and no seizure activity was noted. She denies abdominal pain, dysuria, or urginary frequency. In the emergency room, the patient was markedly hypertensive with max BP 228/115, but the remainder of her vital signs were unremarkable. Laboratory evaluation revealed a mild leukocytosis with WBC 12.7, coagulation studies were unremarkable except for a low APTT at 18. Chemistries were also unremarkable, troponin was negative. Urinalysis showed 5-10 wbc's, though was contaminated with some squamous cells and was reflexed for further culture. Urine drug Screen was positive for marijuana. Head CT, CT angiogram, and chest x-ray were unremarkable with no acute pathologies found, though she had thyroid nodules noted which she reports previous thyroid biopsies.. Discharge Providers Provider Date of admission: 12/05/22 17:03 Discharge Date: 12/09/22 Primary care physician: Tiffanie Newsome DO Consults: 12/05/22 18:06 Consult to Tele-tool lathe operator Routine Comment: Consulting Provider: [employer] [employer] Reason for consultation: [employer] services 12/07/22 12:20 Consult to General Surgery Routine Comment: Consulting Provider: Linh Roberts Reason for consultation: cholecystitis Has provider been notified: Yes Discharge provider: Eliseo Delgado DO Summary Hospital Course Discharge Diagnosis: 1. Hypertensive emergency with acute metabolic / hypertensive encephalopathy ?- CT / CT angiogram head and neck initially unremarkable. ?- marked HTN with BP 228/115 in the ER. ?- nicardipine gtt with goal BP reduction around 20%. Goal SBP around 180. She was only on briefly before BP improved then taken off. ?- symptom control with zofran and pain medications. ?- MRI brain negative for CVA. TTE unremarkable. ?- BP improved to 120's systolic after cholecystectomy, discussed with patient that she may warrant BP meds in the future due to her labile pressures with pain or NV. She will discuss this with PCP and buy a cuff to monitor her BP at home. 2. Asymptomatic bacteuria ?- follow up urine cultures, no indication for antibiotic treatment at this time but will be covered with zosyn as noted below. 3. nausea/vomiting/diarrhea, acute cholecystitis and colitis ?- with continued abdominal pain and nausea, checked lipase elevated at 753, CT abdomen with possible cholecystitis, but also nonspecific ascending colonic wall thickening. Differential does include passed stone given dilatation noted on ultrasound today. ?- US with wall thickening, pericholecystic fluid and narvaez sign. ?- underwent successful lap corwin on 12/08 and on 12/09 felt much better with no NV and able to tolerate diet, zosyn stopped 4. Obesity. ?- patient's obesity places her at increased morbidity and mortality risk from possible surgical procedures, contributes to her hypertension, and increases medical complexity. ?- truck leasing manager consultation after treatment of cholecystitis. Hospital Course: Admitted for abd pain, NV and HTN urgency. Found to have acute cholecystitis and underwent lap corwin and all of her symptoms resolved. BP improved to 120's sytolic so not started on BP meds. She will discuss with PCP about BP monitoring and if she needs meds in the future. Sent home with karmen duvall for pain. Time Spent with Patient Time spent: Greater than 30 minutes Exam Vital Signs (past 8 hours): - 12/09/22 04:00 12/09/22 08:34 Temperature 99.6 F 98 F Pulse Rate 83 75 Respiratory Rate 18 17 Blood Pressure 162/82 H 129/66 Pulse Oximetry 93 99 Oxygen Flow Rate 0 Fraction of Inspired Oxygen 24 SaO2/FiO2 Ratio 408 Oxygen Delivery Method Nasal Cannula Oxygen Flow Rate 0 Narrative Exam Narrative: General:? Patient is well developed and well nourished, no acute distress. HEENT:? Normocephalic, atraumatic, extraocular muscles intact, oral pharynx is clear and mucous membranes are moist. Neck: supple and symmetric, trachea is midline, no cervical adenopathy. Negative for JVD Lungs:? CTA b/l no wheezing rhonchi or rales. Cardio:?RRR no m/r/g. Abdomen: soft and non-distended, diffuse mild tenderness, improved today Musculoskeletal:? Muscle strength and tone are equal within normal limits, no deformity. Extremities: No edema or joint effusions. No cyanosis or clubbing. Neuro:? Alert and orientated x3,? sensation to touch intact in all extremities, no gross deficits noted of cranial nerves. Psych:? Patient has a well-kept appearance, appropriate affect, mental status attitude thought context and judgment are appropriate for age. Objective Labs 12/08/22 04:08 12/08/22 04:08 [facility] Medical History Chickenpox (1961) Chronic back pain (1986) Herpes (1985) Hypothyroidism (1971) Measles (1960) Mumps (1962) Pneumonia (2016) Surgical History Hx of dilation and curettage (1981) Hx of tonsillectomy (~1962) Family History Father Atrial fibrillation, chronic Macular degeneration Hypertension Hyperlipidemia Mother Cancer Brain tumor Grandfather No problems noted. Grandmother Cancer Grandfather No problems noted. Grandmother No problems noted. Brother Cancer Social History household members: spouse Smoking Status: Former smoker Tobacco: How many years used: 10 alcohol intake: current substance use type: does not use Discharge Plan Discharge Plan Patient Disposition: Home Provider Discharge Comment: You may return to work in 1 week (12/16). Discharge orders & Medications Prescriptions: New hydrocodone-acetaminophen 5-325 mg tablet 1 tab PO BEDTIME PRN (Reason: pain) Qty: 10 0RF Continued cetirizine [Zyrtec] 10 mg capsule 10 mg PO DAILY Follow up/Referrals: Giacomo Carrillo MD [Physician] - 12/26/22 9:00 am (12/26 @ 9:[address] Troy santoyo please arrive 15 min prior to your scheduled appointment time ) Visit Report/Discharge Packet Instructions: DI for Laparoscopic Cholecystectomy Stand Alone Forms: Patient Portal/API, Stroke Signs & Symptoms Discharge Data Primary Care Provider: Tiffanie Newsome VTE Deep Vein Thrombosis/Pulmonary Embolism Present on Admission: No
[2022-12-09] MEDS: LOSARTAN 25 MG TABLET PO (09:45)
== END 2022-12-09 13:00 | disposition home or self-care (01) | DRG 417 ==
LOC: ED 14:31 → AC 17:03 → ICU 17:08
PROVIDERS: Surgery; Admitting Provider Internal Medicine; Emergency Provider Emergency Medicine; PCP Family Medicine; Referring Provider Emergency Medicine; Visit Provider Internal Medicine
PROC: 0FT44ZZ Resection of Gallbladder, Percutaneous Endoscopic Approach (ICD-10-PCS; CPT 47562; principal; 2022-12-08 11:00)
DX: K80.00 Calculus of gallbladder with acute cholecystitis without obstruction (principal); G93.41 Metabolic encephalopathy; I16.1 Hypertensive emergency; Z68.41 Body mass index [BMI] 40.0-44.9, adult; M54.50 Low back pain, unspecified; G89.29 Other chronic pain; E66.9 Obesity, unspecified; G45.4 Transient global amnesia; Z20.822 Contact with and (suspected) exposure to COVID-19; Z87.891 Personal history of nicotine dependence; Z80.52 Family history of malignant neoplasm of bladder; Z82.49 Family history of ischemic heart disease and other diseases of the circulatory system; Z83.438 Family history of other disorder of lipoprotein metabolism and other lipidemia; Z83.518 Family history of other specified eye disorder
CPT/HCPCS: 0241U; 36415; 47562; 70450; 70496; 70498; 70551; 71045; 74177; 76705; 80048; 80053; 80061; 80305; 80320; 81001; 82550; 82962; 83036; 83690; 83735; 84443; 84484; 85025; 85610; 85730; 87086; 87797; 93005; 93306; 94762; 96365; 96375; 99285; 99291; J1100; J1170; J1650; J2060; J2250; J2405; J2543; J2704; J3010; Q9957; Q9967

== ENCOUNTER → 2022-12-26 10:46 | Outpatient (CLI) | payer OTHER, SELFPAY ==
[2022-12-05 17:05] VITALS: BMI 41.2
[2022-12-26 11:35] LABS: Hematocrit 38.8 % (36-46); Hemoglobin 13.2 g/dL (12.0-16.0); Mean Corpuscular HGB Conc 34.1 % (30-36); Mean Corpuscular Hemoglobin 32.9 PG (26-34); Mean Corpuscular Volume 96.4 fL (80-100); Platelet Count 174 X10^3/uL (150-400); Red Blood Cell Count 4.02 X10^6/uL (4.0-5.2); Red Cell Distribution Width 12.5 % (11.6-14.8); White Blood Cell Count 6.6 X10^3/uL (4.5-11.0)
[2022-12-26 12:05] LABS: Alanine Aminotransferase 21 IU/L (<35); Albumin 3.9 g/dL (3.5-5.0); Albumin Globulin Ratio 1.3 (1.0-2.8); Alkaline Phosphatase 73 U/L (38-126); Aspartate Aminotransferase 22 IU/L (14-36); BUN Creatinine Ratio 9.6 (6-22); Bilirubin Total 0.4 mg/dL (0.2-1.3); Blood Urea Nitrogen 8 mg/dL (7-17); Calcium 8.9 mg/dL (8.4-10.2); Carbon Dioxide 29 mmol/L (22-32); Chloride 104 mmol/L (98-107); Cholesterol 157 mg/dL (140-199); Estimated Glomerular Filt Rate > 60 mL/min (>60); Glucose 109 mg/dL (80-110); HDL Cholesterol 30 mg/dL (40-60); HEMOLYSIS < 15 (0-50); LDL Cholesterol Calculated 92 mg/dL (<100); Magnesium 1.9 mg/dL (1.6-2.3); Potassium 4.2 mmol/L (3.4-5.1); Sodium 140 mmol/L (137-145); Total Protein 6.9 g/dL (6.3-8.2); Triglycerides 176 mg/dL (35-150)
[2022-12-26 12:16] LABS: Vitamin D 25 Hydroxy (D3) 72.6 ng/mL (30.0-100.0)
[2022-12-26 12:47] LABS: Vitamin B12 788 pg/mL (239-931)
[2022-12-27 20:08] LABS: Tissue Transglutaminase IgA 3 U/mL (0-3); Tissue Transglutaminase IgG <2 U/mL (0-5)
[2022-12-29 15:17] LABS: Endomysial AB IGA Negative (Negative)
== END ==
PROVIDERS: PCP Internal Medicine; Referring Provider Internal Medicine; Visit Provider Internal Medicine
DX: Z00.00 Encounter for general adult medical examination without abnormal findings (principal); E78.2 Mixed hyperlipidemia; K81.0 Acute cholecystitis; K90.0 Celiac disease; E61.2 Magnesium deficiency; E55.9 Vitamin D deficiency, unspecified; E53.8 Deficiency of other specified B group vitamins
CPT/HCPCS: 36415; 80053; 80061; 82306; 82607; 83516; 83735; 85027; 86255

== ENCOUNTER → 2023-01-02 07:48 | Outpatient (CLI) | payer OTHER, SELFPAY ==
[2022-12-05 17:05] VITALS: BMI 41.2
--- NOTE | 2023-01-02 | DI.MG.S_ITS ---
BILATERAL DIGITAL SCREENING MAMMOGRAM 3D/2D WITH CAD: 01/02/2023 CLINICAL: Routine screening. Comparison is made to exams dated: 09/02/2019 mammogram, 09/01/2018 mammogram - [facility], and 06/30/2017 mammogram - [facility] [place]. Both breasts are almost entirely fatty (category a/<25% glandular tissue). Current study was also evaluated with a Computer Aided Detection (CAD) system. No significant masses, calcifications, or other findings are seen in either breast. There has been no significant interval change. IMPRESSION: NEGATIVE There is no mammographic evidence of malignancy. A 1 year screening mammogram is recommended. Based on the Tyrer Cuzick model (a risk assessment model) the patient's lifetime risk is 5.2% and her 10 year risk is 2.4%. According to the ACR, ACS, and NCCN guidelines, an annual breast MRI exam along with mammogram is recommended if the patient's lifetime risk is 20% or greater. This exam was interpreted at Station ID: [id number]. NOTE: For mammograms, a report in lay terms will be sent to the patient. Approximately 15% of breast malignancies will not be visualized mammographically. In the management of a palpable breast mass, a negative mammogram must not discourage biopsy of a clinically suspicious lesion. Electronically Signed By: Annie pinto/leeann:01/02/2023 10:00:29 letter sent: Normal Exam ACR BI-RADS Category 1: Negative 3341F
== END ==
PROVIDERS: PCP Internal Medicine; Referring Provider Internal Medicine; Visit Provider Internal Medicine
DX: Z12.31 Encounter for screening mammogram for malignant neoplasm of breast (principal)
CPT/HCPCS: 77063; 77067

== ENCOUNTER 2023-02-10 06:49 | Day surgery (SDC) | payer OTHER, SELFPAY ==
[2022-12-05 17:05] VITALS: BMI 41.2
--- NOTE | 2023-02-10 | PATH_ITS ---
[facility] Accession Number: [id number] No. of containers..03 Tissue . 01 Material submitted: . PART A: gastrointestinal site - GASTRIC BIOPSY PART B: duodenum - DUODENAL BIOPSY PART C: colon - RANDOM COLON BIOPSY . 01 Diagnosis: A. Stomach, Biopsy: Body-type mucosa with mild chronic gastritis. Negative for Helicobacter by immunohistochemistry. Negative for intestinal metaplasia. Negative for dysplasia and malignancy. . B. Duodenum, Biopsy: Duodenal mucosa with no diagnostic abnormality. Negative for active inflammation, features of sprue, dysplasia, or malignancy. . C. Random Colon, Biopsy: Lymphocytic colitis. Negative for granulomas, dysplasia, and malignancy. [facility] 02/13/2023 1507 Local . 01 Electronically signed: . Francesca Avila MD, Pathologist NPI- [id number] . 01 Gross description: . Part A: GASTRIC BIOPSY: Received in formalin are 2 fragment(s) of rivero, soft tissue measuring 0.2 x 0.2 x 0.2 cm to 0.3 x 0.2 x 0.2 cm submitted entirely in 1 cassette(s) Part B: DUODENAL BIOPSY: Received in formalin is 1 fragment(s) of rivero, soft tissue measuring 0.3 x 0.3 x 0.3 cm submitted entirely in 1 cassette(s) Part C: RANDOM COLON BIOPSY: Received in formalin are 3 fragment(s) of rivero, soft tissue measuring 0.1 x 0.1 x 0.1 cm to 0.5 x 0.1 x 0.1 cm submitted entirely in 1 cassette(s) /[facility] 02/11/2023 1931 Local . 01 Microscopic: . A. An immunohistochemical stain was performed to evaluate for Helicobacter organisms and is negative. The control stain showed appropriate reactivity. . * This test was developed and its performance characteristics determined by [facility]. It has not been cleared or approved by the U.S. Food and Drug Administration. The FDA has determined that such clearance or approval is not necessary. This test is used for clinical purposes. It should not be regarded as investigational or for research. . 01 Pathologist provided ICD-10: K52.89, R19.7 . 01 CPT . 825934, 640346, 103396, K31627 Specimen Comment: A courtesy copy of this report has been sent to [phone] Performed at: 01 [facility] [address] [place] [address], [place], [place] [id number] MD Carlo Harding MD Phone: [phone]
[2023-02-10] MEDS: LACTATED RINGERS 1,000 ML 200 ML IV (07:10)
[2023-02-10 07:18] VITALS: BP 152/80; PULSE 107; RESP 18; TEMP 36.3; O2SAT 94; BMI 42.0
--- NOTE | 2023-02-10 07:45 | P.HP_ITS ---
History of Present Illness History of Present Illness Date Patient Seen: 02/10/23 Time Patient Seen: 07:45 Chief complaint: EGD/Colonoscopy Narrative: 62-year-old woman with chronic diarrhea here for diagnostic esophagoduodenoscopy and colonoscopy. Please refer to the H and P from December 2022 for further detail. No interval changes in health. [facility] Medical History Abnormal CT scan, sigmoid colon Celiac disease Chickenpox (1961) Chronic back pain (1986) Diarrhea Herpes (1985) Hypothyroidism (1971) Measles (1960) Mixed hyperlipidemia Mumps (1962) Pneumonia (2016) Severe obesity (BMI >= 40) Venous (peripheral) insufficiency Vitamin D deficiency Surgical History Hx of dilation and curettage (1981) Hx of tonsillectomy (~1962) Family History Father Atrial fibrillation, chronic Macular degeneration Hypertension Hyperlipidemia Mother Cancer Brain tumor Grandfather No problems noted. Grandmother Cancer Grandfather No problems noted. Grandmother No problems noted. Brother Cancer Social History marital status: details: , 1 son/daugher; [employer]claims customer service representative household members: spouse lives independently: Yes occupational status: employed Smoking Status: Former smoker Tobacco: How many years used: 10 alcohol intake: current substance use type: does not use Meds Home Medications and Allergies Home Medications Medication Instructions Recorded Confirmed Type L. acidophilus/Bifid. animalis 1 cap PO DAILY 12/26/22 02/10/23 History [Daily Probiotic] cetirizine 10 mg tablet (Aller-Delma) 10 mg PO DAILY 12/26/22 02/10/23 History cholecalciferol (vitamin D3) 50 50 mcg PO DAILY 12/26/22 02/10/23 History mcg (2,000 unit) capsule magnesium citrate 400 mg PO DAILY 12/26/22 02/10/23 History multivitamin 1 tab PO DAILY 12/26/22 02/10/23 History niacin 500 mg tablet 500 mg PO DAILY 12/26/22 02/10/23 History omega-3 fatty acids 1,000 mg 1,000 mg PO DAILY 12/26/22 02/10/23 History capsule thiamine HCl (vitamin B1) 100 mg 100 mg PO DAILY 12/26/22 02/10/23 History tablet vitamin B complex 1 tab PO DAILY 12/26/22 02/10/23 History Allergies Allergy/AdvReac Type Severity Reaction Status Date / Time house dust Allergy Mild Verified 02/10/23 07:10 perfume Allergy Mild Verified 02/10/23 07:10 tree and shrub pollen Allergy Mild Post nasal Verified 02/10/23 07:10 drip gluten AdvReac Mild Gastrointestinal Verified 02/10/23 07:10 Upset Exam Vital Signs (past 8 hours): - 02/10/23 07:18 Temperature 97.4 F L Pulse Rate 107 H Respiratory Rate 18 Blood Pressure 152/80 H Pulse Oximetry 94 Oxygen Delivery Method Room Air Oxygen Delivery Method Room Air Narrative Exam Narrative: General adult woman alert oriented no acute distress Abdomen soft nontender nondistended Assessment & Plan Assessment & Plan narrative: 62-year-old woman with chronic diarrhea of unknown etiology here for EGD and colonoscopy. Overview of the procedures were again discussed with the patient at the bedside. Procedural risks including but not limited to hemorrhage, missed diagnosis, intestinal injury, need for further procedure or biopsy based on pathology findings were discussed her questions have been answered she is in agreement with this plan. She provides her written and verbal consent to proceed.
[2023-02-10 08:31] VITALS: BP 156/68; PULSE 77; RESP 14; TEMP 36.2; O2SAT 98
--- NOTE | 2023-02-10 08:31 | PM.OP.EC ---
Operative Date/Time/Diagnoses Date of procedure: 02/10/23 Time of procedure: 08:32 Pre-op diagnosis: Chronic diarrhea Post-op diagnosis: same Procedure & Clinicians Study performed: Esophagoduodenoscopy and colonoscopy Same procedure as scheduled: Yes Indications: 62-year-old woman with chronic diarrhea of unknown etiology here for diagnostic EGD and colonoscopy Surgeon: Camden Artis Procedure Notes Procedure in detail: The history and physical was performed/updated and the patient is ASA class is 3. The procedure was discussed in detail with the patient. Potential risks complications including infection, bleeding, missed diagnosis, perforation, need for surgery, and were explained. Their questions were answered and informed consent was obtained. Patient placed in left lateral decubitus position. Time out was performed. Procedural sedation was administered by Anesthesia. A bite block was placed. the scope was inserted into the mouth and advanced through the esophagus and into the stomach. The stomach was notable for diffuse but mild gastritis and multiple biopsies of the stomach were performed with forceps. The duodenum was intubated and transverse to the 2nd portion were further biopsies labeled duodenum were obtained with forceps. The scope was retroflexed within the stomach and there was a small hiatal hernia. The scope was withdrawn into the esophagus the Z line was seen at 40 cm from the incisions. There was no Lozano's esophagitis, esophageal masses or strictures. Stomach was desufflated and scope removed. Examination began with a thorough inspection of the perianal area there was no evidence of fissures, fistulae, external hemorrhoids or cutaneous malignancy. The colonoscopy scope was then placed into the anal canal and was advanced to the cecum, which was identified by the ileocecal valve, the appendiceal orifice and the confluence of the taenia. The scope was then slowly withdrawn examining colon thoroughly in all directions, irrigating it of any residual stool. The colon was largely unremarkable in its appearance. There was minimal diverticulosis within the sigmoid/descending colon. There were no masses polyps or inflammation. Multiple attempts to intubate the ileocecal valve were made involving repositioning scope stiffener external pressure but it could not be intubated. The scope was then slowly withdrawn and multiple random colonic biopsies were obtained. The patient tolerated the procedure well. They will be discharged once criteria are met. The prep was of good/excellent quality. The withdrawl time was 7 minutes. Specimen(s): other (Gastric, duodenum, random colonic biopsies, stool culture) Impression: Gastritis Post-procedure Recommendations: Colonscopy in 10 years Plan for aftercare: Will notify with pathology and microbiology findings. Disposition: same day surgery
[2023-02-10 08:35] VITALS: BP 143/80; PULSE 75; RESP 12; O2SAT 99
[2023-02-10 08:40] VITALS: BP 150/79; PULSE 77; RESP 13; O2SAT 99
[2023-02-10 08:45] VITALS: BP 148/77; PULSE 73; RESP 18; TEMP 36.1; O2SAT 99
[2023-02-10 08:53] VITALS: BP 146/83; PULSE 76; RESP 12; TEMP 36.6; O2SAT 99
== END 2023-02-10 09:05 | disposition home or self-care (01) ==
PROVIDERS: PCP Internal Medicine; Referring Provider Surgery; Visit Provider Surgery
PROC: 0DJ08ZZ Inspection of Upper Intestinal Tract, Via Natural or Artificial Opening Endoscopic (ICD-10-PCS; CPT 43235; principal; 2023-02-10 07:45)
PROC: 0DJD8ZZ Inspection of Lower Intestinal Tract, Via Natural or Artificial Opening Endoscopic (ICD-10-PCS; CPT 45378; 2023-02-10 07:45)
DX: K52.832 Lymphocytic colitis (principal); K44.9 Diaphragmatic hernia without obstruction or gangrene; K57.30 Diverticulosis of large intestine without perforation or abscess without bleeding; K29.50 Unspecified chronic gastritis without bleeding
CPT/HCPCS: 45380; 43239; 87177; J2405; J2704

== ENCOUNTER → 2024-07-15 16:43 | Outpatient (CLI) | payer OTHER, SELFPAY ==
[2024-06-09 08:17] VITALS: BMI 41.2
--- NOTE | 2024-07-15 16:44 | DI.MG.S_ITS ---
BILATERAL DIGITAL SCREENING MAMMOGRAM 3D/2D WITH CAD: 07/15/2024 CLINICAL: Routine screening. Comparison is made to exams dated: 01/02/2023 mammogram, 09/02/2019 mammogram, and 09/01/2018 mammogram - [facility]. There are scattered areas of fibroglandular density (category b / 25%-50% glandular tissue). Current study was also evaluated with a Computer Aided Detection (CAD) system. There is a focal asymmetry in the right breast at 11 o'clock anterior depth. No other significant masses, calcifications, or other findings are seen in either breast. IMPRESSION: INCOMPLETE: NEED ADDITIONAL IMAGING EVALUATION The focal asymmetry in the right breast is indeterminate. Additional views with possible ultrasound are recommended. Based on the Tyrer Cuzick model (a risk assessment model) the patient's lifetime risk is 7.2% and her 10 year risk is 3.6%. According to the ACR, ACS, and NCCN guidelines, an annual breast MRI exam along with mammogram is recommended if the patient's lifetime risk is 20% or greater. This exam was interpreted at Station ID: [id number]. NOTE: For mammograms, a report in lay terms will be sent to the patient. Approximately 15% of breast malignancies will not be visualized mammographically. In the management of a palpable breast mass, a negative mammogram must not discourage biopsy of a clinically suspicious lesion. Electronically Signed By: Stephen ramirez/leeann:07/18/2024 08:58:11 letter sent: Additional Imaging Needed ACR BI-RADS Category 0: Incomplete: Need Additional Imaging Evaluation
== END ==
LOC: MAMMO 16:43
PROVIDERS: PCP Internal Medicine; Referring Provider Internal Medicine; Visit Provider Internal Medicine
DX: Z12.31 Encounter for screening mammogram for malignant neoplasm of breast (principal)
CPT/HCPCS: 77063; 77067

== ENCOUNTER → 2024-07-26 08:52 | Outpatient (CLI) | payer OTHER, SELFPAY ==
[2024-06-09 08:17] VITALS: BMI 41.2
--- NOTE | 2024-07-26 08:53 | DI.US.S_ITS ---
LIMITED ULTRASOUND OF RIGHT BREAST: 07/26/2024 CLINICAL: Patient returns today to evaluate a focal asymmetry in the right breast. Comparison is made to exams dated: 07/26/2024 mammogram, 07/15/2024 mammogram, 01/02/2023 mammogram, 09/02/2019 mammogram, 09/01/2018 mammogram - [facility], and 06/30/2017 mammogram - [facility]. Real-time ultrasound of the right breast upper outer quadrant was performed. Mcdonald scale images of the real-time examination were reviewed. No significant abnormalities were seen sonographically in the right breast. IMPRESSION: PROBABLY BENIGN There is no abnormality seen in the right breast to correspond with the mammography finding. A follow-up mammogram in 6 months is recommended to demonstrate stability. This exam was interpreted at Station ID: [id number]. Electronically Signed By: Stephen ramirez/leeann:07/26/2024 09:34:40 letter sent: Followup Recommended ACR BI-RADS Category 3: Probably Benign
--- NOTE | 2024-07-26 08:53 | DI.MG.S_ITS ---
UNILATERAL RIGHT DIGITAL DIAGNOSTIC MAMMOGRAM 3D/2D WITH ADDITIONAL VIEWS: 07/26/2024 Comparison is made to exams dated: 07/15/2024 mammogram, 01/02/2023 mammogram, and 09/02/2019 mammogram - [facility]. There are scattered areas of fibroglandular density (category b / 25%-50% glandular tissue). There is a focal asymmetry in the right breast at 11 o'clock anterior depth. No other significant masses or calcifications are seen in the breast. IMPRESSION: INCOMPLETE: NEED ADDITIONAL IMAGING EVALUATION The focal asymmetry in the right breast is indeterminate. An ultrasound is recommended. Based on the Tyrer Cuzick model (a risk assessment model) the patient's lifetime risk is 7.2% and her 10 year risk is 3.6%. According to the ACR, ACS, and NCCN guidelines, an annual breast MRI exam along with mammogram is recommended if the patient's lifetime risk is 20% or greater. This exam was interpreted at Station ID: [id number]. NOTE: For mammograms, a report in lay terms will be sent to the patient. Approximately 15% of breast malignancies will not be visualized mammographically. In the management of a palpable breast mass, a negative mammogram must not discourage biopsy of a clinically suspicious lesion. Electronically Signed By: Stephen ramirez/leeann:07/26/2024 09:34:19 ACR BI-RADS Category 0: Incomplete: Need Additional Imaging Evaluation
== END ==
PROVIDERS: PCP Internal Medicine; Referring Provider Internal Medicine; Visit Provider Internal Medicine
DX: R92.8 Other abnormal and inconclusive findings on diagnostic imaging of breast (principal)
CPT/HCPCS: 76642; 77065; G0279

== ENCOUNTER → 2025-05-03 08:39 | Outpatient (CLI) | payer OTHER, SELFPAY ==
[2024-06-09 08:17] VITALS: BMI 41.2
[2025-05-03 09:40] LABS: Add Manual Diff / Slide Review NO; Hematocrit 38.1 % (36-46); Hemoglobin 13.2 g/dL (12.0-16.0); Lymphocytes Absolute Auto 1300 /uL (1100-4500); Mean Corpuscular HGB Conc 34.7 % (30-36); Mean Corpuscular Hemoglobin 34.5 PG (26-34); Mean Corpuscular Volume 99.6 fL (80-100); Platelet Count 151 X10^3/uL (150-400)
[2025-05-03 10:12] LABS: Alanine Aminotransferase 12 IU/L (<35); Albumin 3.8 g/dL (3.5-5.0); Albumin Globulin Ratio 1.7 (1.0-2.8); Alkaline Phosphatase 68 U/L (38-126); Blood Urea Nitrogen 16 mg/dL (7-17); Calcium 8.9 mg/dL (8.4-10.2); Carbon Dioxide 27 mmol/L (22-32); Chloride 107 mmol/L (98-107); Cholesterol 157 mg/dL (140-199); Estimated Glomerular Filt Rate > 60 mL/min (>60); Globulin 2.3 g/dL (1.7-4.1); Glucose 90 mg/dL (70-99); HDL Cholesterol 44 mg/dL (40-60); HEMOLYSIS < 15 (0-50); Potassium 4.4 mmol/L (3.4-5.1); Sodium 139 mmol/L (137-145); Total Protein 6.1 g/dL (6.3-8.2); Triglycerides 132 mg/dL (35-150)
== END ==
PROVIDERS: PCP Family Medicine; Referring Provider Family Medicine; Visit Provider Family Medicine
DX: E78.2 Mixed hyperlipidemia (principal); K52.832 Lymphocytic colitis; E66.812 Obesity, class 2; Z77.098 Contact with and (suspected) exposure to other hazardous, chiefly nonmedicinal, chemicals; K90.41 Non-celiac gluten sensitivity
CPT/HCPCS: 36415; 80053; 80061; 85025